=== PATIENT | male | born 1955 | race Caucasian/White ===

== ENCOUNTER → 2018-05-08 13:24 | Outpatient (CLI) | payer OTHER, SELFPAY ==
[2018-05-08 15:52] LABS: Absolute Lymphocyte Count 2.18 X10^3/ul (0.83-4.51); Absolute Neutrophil Count 4.2 X10^3/uL (2.0-7.7); Basophil# 0.03 X10^3/uL; Basophil% 0.4 % (0-1); Eosinophil# 0.09 X10^3/uL; Eosinophils% 1.3 % (0-5); Hematocrit 42.5 % (40-54); Hemoglobin 15.1 g/dl (13.0-16.5); Lymphocyte # 2.18 X10^3/ul (4.0); Mean Corp Hgb Conc 35.5 g/gl (32-36); Mean Corpuscular Hgb 31.3 pg (27.0-32.0); Mean Platelet Vol. 10.5 fl (6.2-12.0); Monocyte# 0.56 X10^3/uL; Neutrophil # 4.17 X10^3/uL (2.7-7.7); Neutrophil % 59.2 % (47-70); Platelet Count 200 K/mm3 (150-450); RBC Distribution Width CV 11.9 % (11.6-14.6); RBC Distribution Width SD 37.9 fl (35.1-43.9); Red Blood Count 4.83 M/mm3 (4.6-6.2)
[2018-05-08 15:58] LABS: POSITIVE COUNT NO; POSITIVE DIFFERENTIAL NO; POSITIVE MORPHOLOGY NO
[2018-05-08 16:20] LABS: ALB/GLOB Ratio 1.1 RATIO (0.9-2.4); AST(SGOT) 14 U/L (15-37); Alanine Aminotransfer ALT/SGPT 23 U/L (16-61); Alkaline Phosphatase 56 U/L (45-117); Anion Gap 11 (5-15); BUN 20 mg/dL (7-18); BUN/Creat Ratio 16.7 RATIO (10-20); Calcium,Total 8.4 mg/dL (8.5-10.1); Chloride 104 mmol/L (98-107); Cholesterol 190 mg/dL (200); EST Glomerular Filtration Rate 65 mL/min (>60); Est Glom Filt Rate - Afr Amer 79 mL/min (>60); Globulin 3.5 g/dL (2.2-4.2); Glucose 84 mg/dL (74-106); High Density Lipoprotein 49 mg/dL; PSA,Total - Annual Screen 1.21 ng/mL (0.00-4.00); Protein, Total 7.5 g/dL (6.4-8.2); Sodium Level 140 mmol/L (136-145); Thyroid Stim Hormone (TSH) 1.19 uIU/mL (0.358-3.74); Triglycerides 103 mg/dL; Very Low Density Lipoprotein 21 mg/dL (5-40)
[2018-05-09 08:26] LABS: Vitamin B12 510 pg/mL (211-911); Vitamin D,25 Hydroxy 52.7 ng/mL (29.95-100.01)
[2018-05-12 16:14] LABS: Testosterone, Free 13.17 ng/dL (5.00-21.00)
[2018-05-13 07:58] LABS: Testosterone, % Free 3.71 % (1.50-4.20); Testosterone, Total 355 ng/dL (264-916)
== END ==
PROVIDERS: Family Provider Family Medicine; PCP Family Medicine; Visit Provider Family Medicine
DX: Z00.01 Encounter for general adult medical examination with abnormal findings (principal); R53.83 Other fatigue; E29.1 Testicular hypofunction; E55.9 Vitamin D deficiency, unspecified; E53.8 Deficiency of other specified B group vitamins; E01.0 Iodine-deficiency related diffuse (endemic) goiter; Z12.5 Encounter for screening for malignant neoplasm of prostate
CPT/HCPCS: 36415; 80053; 80061; 82306; 82607; 84153; 84402; 84403; 84443; 85025; G0103

== ENCOUNTER → 2019-05-09 07:27 | Outpatient (CLI) | payer OTHER, SELFPAY ==
[2019-05-09 08:12] LABS: Absolute Lymphocyte Count 2.34 X10^3/uL (0.83-4.51); Basophil# 0.06 X10^3/uL; Eosinophil# 0.24 X10^3/uL; Eosinophils% 3.8 % (0-5); Hematocrit 45.5 % (40-54); Hemoglobin 15.8 g/dL (13.0-16.5); Lymphocyte # 2.34 X10^3/ul (4.0); Lymphocyte % 37.3 % (19-41); Mean Corp Hgb Conc 34.7 g/dL (32-36); Mean Corpuscular Hgb 30.9 pg (27.0-32.0); Mean Platelet Vol. 9.7 fl (6.2-12.0); Monocyte% 9.6 % (0-10); NRBC Flagged by Analyzer 0 % (0-5); Neutrophil # 3.03 X10^3/uL (2.7-7.7); Neutrophil % 48.1 % (47-70); Platelet Count 210 K/mm3 (150-450); RBC Distribution Width CV 11.6 % (11.6-14.6); RBC Distribution Width SD 37.5 fl (35.1-43.9); Red Blood Count 5.11 M/mm3 (4.6-6.2); White Blood Count 6.3 K/mm3 (4.4-11.0)
[2019-05-09 08:41] LABS: Vitamin B12 749 pg/mL (211-911); Vitamin D,25 Hydroxy 48.5 ng/mL (29.95-100.01)
[2019-05-09 08:44] LABS: ALB/GLOB Ratio 1.1 RATIO (0.9-2.4); AST(SGOT) 16 U/L (15-37); Alanine Aminotransfer ALT/SGPT 21 U/L (16-61); Albumin, Serum 4.1 g/dL (3.2-5.0); Alkaline Phosphatase 70 U/L (45-117); Anion Gap 5 (5-15); BUN 21 mg/dL (7-18); BUN/Creat Ratio 15.7 RATIO (10-20); Calcium,Total 8.5 mg/dL (8.5-10.1); Chloride 105 mmol/L (98-107); Cholesterol 182 mg/dL (200); Creatinine, Serum 1.34 mg/dL (0.70-1.30); EST Glomerular Filtration Rate 57 mL/min (>60); Est Glom Filt Rate - Afr Amer 69 mL/min (>60); Globulin 3.7 g/dL (2.2-4.2); Glucose 94 mg/dL (74-106); High Density Lipoprotein 52 mg/dL; PSA,Total - Annual Screen 1.28 ng/mL (0.00-4.00); Potassium 3.8 mmol/L (3.5-5.1); Protein, Total 7.8 g/dL (6.4-8.2); Sodium Level 141 mmol/L (136-145); Thyroid Stim Hormone (TSH) 1.77 uIU/mL (0.358-3.74); Triglycerides 89 mg/dL; Very Low Density Lipoprotein 18 mg/dL (5-40)
[2019-05-12 03:06] LABS: Testosterone, Free 7.43 ng/dL (5.00-21.00)
[2019-05-12 10:32] LABS: Testosterone, % Free 2.02 % (1.50-4.20); Testosterone, Total 368 ng/dL (264-916)
== END ==
PROVIDERS: Family Provider Family Medicine; PCP Family Medicine; Referring Provider Family Medicine; Visit Provider Family Medicine
DX: Z00.01 Encounter for general adult medical examination with abnormal findings (principal); R53.83 Other fatigue; E29.1 Testicular hypofunction; E55.9 Vitamin D deficiency, unspecified; E53.8 Deficiency of other specified B group vitamins; E01.0 Iodine-deficiency related diffuse (endemic) goiter; Z12.5 Encounter for screening for malignant neoplasm of prostate
CPT/HCPCS: 36415; 80053; 80061; 82306; 82607; 84153; 84402; 84403; 84443; 85025; G0103

== ENCOUNTER → 2020-05-15 09:13 | Outpatient (CLI) | payer OTHER, SELFPAY ==
[2020-05-15 12:14] LABS: Absolute Lymphocyte Count 1.77 X10^3/uL (0.83-4.51); Absolute Neutrophil Count 4.2 X10^3/uL (2.0-7.7); Basophil# 0.03 X10^3/uL; Basophil% 0.5 % (0-1); Eosinophil# 0.16 X10^3/uL; Eosinophils% 2.4 % (0-5); Hematocrit 41.2 % (40-54); Hemoglobin 14.1 g/dL (13.0-16.5); Lymphocyte # 1.77 X10^3/ul (4.0); Lymphocyte % 26.6 % (19-41); Mean Corp Hgb Conc 34.2 g/dL (32-36); Mean Corpuscular Hgb 31.2 pg (27.0-32.0); Mean Corpuscular Volume 91.2 fL (80-94); Monocyte# 0.51 X10^3/uL; Monocyte% 7.7 % (0-10); NRBC Flagged by Analyzer 0 % (0-5); Neutrophil # 4.18 X10^3/uL (2.7-7.7); Neutrophil % 62.6 % (47-70); Platelet Count 231 K/mm3 (150-450); RBC Distribution Width SD 39.7 fl (35.1-43.9); Red Blood Count 4.52 M/mm3 (4.6-6.2); White Blood Count 6.7 K/mm3 (4.4-11.0)
[2020-05-15 12:36] LABS: Vitamin B12 650 pg/mL (211-911); Vitamin D,25 Hydroxy 47.8 ng/mL
[2020-05-15 12:43] LABS: ALB/GLOB Ratio 1.1 RATIO (0.9-2.4); AST(SGOT) 10 U/L (15-37); Alanine Aminotransfer ALT/SGPT 21 U/L (16-61); Albumin, Serum 3.9 g/dL (3.2-5.0); Alkaline Phosphatase 61 U/L (45-117); Anion Gap 3 (5-15); BUN 26 mg/dL (7-18); BUN/Creat Ratio 19.4 RATIO (10-20); Calcium,Total 8.5 mg/dL (8.5-10.1); Chloride 108 mmol/L (98-107); Cholesterol 195 mg/dL (200); Creatinine, Serum 1.34 mg/dL (0.70-1.30); EST Glomerular Filtration Rate 57 mL/min (>60); Est Glom Filt Rate - Afr Amer 69 mL/min (>60); Globulin 3.7 g/dL (2.2-4.2); Glucose 97 mg/dL (74-106); High Density Lipoprotein 46 mg/dL; PSA,Total - Annual Screen 1.13 ng/mL (0.00-4.00); Potassium 4.1 mmol/L (3.5-5.1); Protein, Total 7.6 g/dL (6.4-8.2); Sodium Level 140 mmol/L (136-145); Thyroid Stim Hormone (TSH) 1.75 uIU/mL (0.358-3.74); Triglycerides 122 mg/dL; Very Low Density Lipoprotein 24 mg/dL (5-40)
[2020-05-19 12:07] LABS: Testosterone, Free 8.88 ng/dL (5.00-21.00)
[2020-05-19 13:26] LABS: Testosterone, Total 425 ng/dL (264-916)
[2020-05-19 13:27] LABS: Testosterone, % Free 2.09 % (1.50-4.20)
== END ==
PROVIDERS: PCP Family Medicine; Visit Provider Family Medicine
DX: Z00.00 Encounter for general adult medical examination without abnormal findings (principal); R42 Dizziness and giddiness; E55.9 Vitamin D deficiency, unspecified; E29.1 Testicular hypofunction; E53.8 Deficiency of other specified B group vitamins; R41.3 Other amnesia; Z12.5 Encounter for screening for malignant neoplasm of prostate
CPT/HCPCS: 36415; 80053; 80061; 82306; 82607; 84153; 84402; 84403; 84443; 85025; G0103

== ENCOUNTER 2020-12-03 10:11 | Outpatient (RCR) | payer OTHER, SELFPAY ==
[2020-12-03] MEDS: COVID-19 VACC, MRNA(PFIZER)/PF 30 MCG/0.3 ML SYRINGE IM (07:53)
[2020-12-24] MEDS: COVID-19 VACC, MRNA(PFIZER)/PF 30 MCG/0.3 ML SYRINGE IM (07:57)
== END 2021-03-02 23:59 ==
LOC: IMMUN 10:11
PROVIDERS: PCP Family Medicine; Visit Provider Family Medicine
DX: Z23 Encounter for immunization (principal)
CPT/HCPCS: 0001A; 0002A; 91300

== ENCOUNTER → 2022-07-07 | Outpatient (CLI) | payer MEDICARE, OTHER, SELFPAY | END | disposition home or self-care (01) | LOC: SL 20:05 | PROVIDERS: PCP Family Medicine; Referring Provider Family Medicine; Visit Provider Family Medicine | DX: G47.30 Sleep apnea, unspecified (principal) | CPT/HCPCS: 95810 ==

== ENCOUNTER → 2022-08-03 | Outpatient (CLI) | payer MEDICARE, OTHER, SELFPAY | END | disposition home or self-care (01) | LOC: PSN 11:51 | PROVIDERS: PCP Family Medicine; Referring Provider Family Medicine; Visit Provider Family Medicine | DX: I47.20 Ventricular tachycardia, unspecified (principal) | CPT/HCPCS: 93225; 93226 ==

== ENCOUNTER → 2022-08-08 | Outpatient (CLI) | payer MEDICARE, OTHER, SELFPAY | END | disposition home or self-care (01) | LOC: SL 21:00 | PROVIDERS: PCP Family Medicine; Visit Provider Family Medicine | DX: G47.33 Obstructive sleep apnea (adult) (pediatric) (principal) | CPT/HCPCS: 95811 ==

== ENCOUNTER → 2022-09-13 | Outpatient (CLI) | payer MEDICARE, OTHER, SELFPAY | END | disposition home or self-care (01) | PROVIDERS: PCP Family Medicine; Visit Provider Family Medicine | DX: G47.33 Obstructive sleep apnea (adult) (pediatric) (principal) | CPT/HCPCS: 95811 ==

== ENCOUNTER → 2023-05-19 | Outpatient (CLI) | payer MEDICARE, OTHER, SELFPAY ==
[2023-05-19 10:25] LABS: Absolute Lymphocyte Count 2.35 X10^3/uL (0.83-4.51); Absolute Neutrophil Count 4.5 X10^3/uL (2.0-7.7); Basophil# 0.05 X10^3/uL; Basophil% 0.7 % (0-1); Eosinophil# 0.09 X10^3/uL; Eosinophils% 1.2 % (0-5); Hematocrit 45.8 % (40-54); Hemoglobin 15.7 g/dL (13.0-16.5); Lymphocyte # 2.35 X10^3/ul (0.83-4.51); Mean Corp Hgb Conc 34.3 g/dL (32-36); Mean Corpuscular Volume 90.5 fL (80-94); Mean Platelet Vol. 9.2 fl (6.2-12.0); Monocyte# 0.56 X10^3/uL; Monocyte% 7.4 % (0-10); NRBC Flagged by Analyzer 0 % (0-5); Neutrophil % 59.4 % (47-70); Platelet Count 199 K/mm3 (150-450); RBC Distribution Width CV 12.1 % (11.6-14.6); Red Blood Count 5.06 M/mm3 (4.6-6.2); White Blood Count 7.6 K/mm3 (4.4-11.0)
[2023-05-19 10:55] LABS: Vitamin B12 659 pg/mL (211-911); Vitamin D,25 Hydroxy 49.8 ng/mL
[2023-05-19 10:58] LABS: ALB/GLOB Ratio 1.1 RATIO (0.9-2.4); AST(SGOT) 14 U/L (15-37); Alanine Aminotransfer ALT/SGPT 29 U/L (16-61); Alkaline Phosphatase 63 U/L (45-117); Anion Gap 6 (5-15); BUN 21 mg/dL (7-18); BUN/Creat Ratio 16.4 RATIO (10-20); Calcium,Total 8.6 mg/dL (8.5-10.1); Chloride 106 mmol/L (98-107); Cholesterol 180 mg/dL (200); Creatinine, Serum 1.28 mg/dL (0.70-1.30); EST Glomerular Filtration Rate 60 mL/min (>60); Est Glom Filt Rate - Afr Amer 72 mL/min (>60); Globulin 3.5 g/dL (2.2-4.2); Glucose 103 mg/dL (74-106); High Density Lipoprotein 49 mg/dL; PSA,Total - Annual Screen 1.52 ng/mL (0.00-4.00); Protein, Total 7.5 g/dL (6.4-8.2); Sodium Level 139 mmol/L (136-145); Thyroid Stim Hormone (TSH) 1.42 uIU/mL (0.358-3.74); Triglycerides 126 mg/dL; Very Low Density Lipoprotein 25 mg/dL (5-40)
== END | disposition home or self-care (01) ==
LOC: LAB 09:34
PROVIDERS: PCP Family Medicine; Referring Provider Family Medicine; Visit Provider Family Medicine
DX: R53.83 Other fatigue (principal); N18.31 Chronic kidney disease, stage 3a; E78.5 Hyperlipidemia, unspecified; Z12.5 Encounter for screening for malignant neoplasm of prostate; R41.3 Other amnesia; E55.9 Vitamin D deficiency, unspecified; E53.8 Deficiency of other specified B group vitamins
CPT/HCPCS: 36415; 80053; 80061; 82306; 82607; 84153; 84443; 85025; G0103

== ENCOUNTER → 2024-05-21 | Outpatient (CLI) | payer MEDICARE, OTHER, SELFPAY ==
[2024-05-21 13:00] LABS: Absolute Lymphocyte Count 2.31 X10^3/uL (0.83-4.51); Absolute Neutrophil Count 4.3 X10^3/uL (2.0-7.7); Basophil# 0.06 X10^3/uL; Basophil% 0.8 % (0-1); Eosinophils% 1.4 % (0-5); Hematocrit 42.1 % (40-54); Hemoglobin 14.2 g/dL (13.0-16.5); Lymphocyte # 2.31 X10^3/ul (0.83-4.51); Lymphocyte % 31.4 % (19-41); Mean Corp Hgb Conc 33.7 g/dL (32-36); Mean Corpuscular Hgb 31.2 pg (27.0-32.0); Mean Corpuscular Volume 92.5 fL (80-94); Mean Platelet Vol. 10.8 fl (6.2-12.0); Monocyte# 0.53 X10^3/uL; Monocyte% 7.2 % (0-10); NRBC Flagged by Analyzer 0 % (0-5); Neutrophil # 4.33 X10^3/uL (2.7-7.7); Neutrophil % 58.8 % (47-70); Platelet Count 209 K/mm3 (150-450); RBC Distribution Width SD 40.8 fl (35.1-43.9); Red Blood Count 4.55 M/mm3 (4.6-6.2); White Blood Count 7.4 K/mm3 (4.4-11.0)
[2024-05-21 14:13] LABS: ALB/GLOB Ratio 1.1 RATIO (0.9-2.4); AST(SGOT) 24 U/L (15-37); Alanine Aminotransfer ALT/SGPT 30 U/L (16-61); Albumin, Serum 4.1 g/dL (3.2-5.0); Alkaline Phosphatase 69 U/L (45-117); Anion Gap 9 (5-15); BUN 25 mg/dL (7-18); BUN/Creat Ratio 18.2 RATIO (10-20); Calcium,Total 9.3 mg/dL (8.5-10.1); Chloride 106 mmol/L (98-107); Cholesterol 192 mg/dL (200); Creatinine, Serum 1.37 mg/dL (0.70-1.30); EST Glomerular Filtration Rate 55 mL/min (>60); Est Glom Filt Rate - Afr Amer 67 mL/min (>60); Globulin 3.6 g/dL (2.2-4.2); Glucose 98 mg/dL (74-106); High Density Lipoprotein 50 mg/dL; PSA,Total - Annual Screen 1.59 ng/mL (0.00-4.00); Potassium 4.2 mmol/L (3.5-5.1); Protein, Total 7.7 g/dL (6.4-8.2); Sodium Level 140 mmol/L (136-145); Triglycerides 110 mg/dL; Very Low Density Lipoprotein 22 mg/dL (5-40)
== END | disposition home or self-care (01) ==
LOC: BFHLAB 10:03
PROVIDERS: PCP Family Medicine; Referring Provider Family Medicine; Visit Provider Family Medicine
DX: R53.83 Other fatigue (principal); E78.5 Hyperlipidemia, unspecified; Z12.5 Encounter for screening for malignant neoplasm of prostate
CPT/HCPCS: 36415; 80053; 80061; 84153; 85025; G0103

== ENCOUNTER → 2025-05-22 | Outpatient (CLI) | payer MEDICARE, OTHER, SELFPAY ==
--- OUTSIDE RECORDS SUMMARY | 2025-05-22 11:42 | XMS RPT_ITS | CCD ---
Author Organization [facility] Team Providers Care Manager Military Name Role Phone Vineet Eller Primary Care Provider Unavaila ble Vannesa Velasquez DO Primary Care Provider VANNESA VELASQUEZ Primary Care Unavailable MEIR FERRELL Referring Unavailable Vannesa Velasquez DO Primary Care Provider Vannesa Velasquez Referring Unavailable Vannesa Velasquez Attending Unavailable Vannesa Velasquez Primary Care Unavailable SELF Referring Unavailable MEIR FERRELL Attending Unavailable VANNESA VELASQUEZ Primary Care Unavailable Medications Current Medications Medication Drug Class(es) Dates Sig (Normalized) Sig (Original) ascorbic acid 500 mg oral tablet (11 sources) Vitamin C take 1 tablet by mouth once daily ascorbic acid, vitamin C, (VITAMIN C) 500 mg tablet Take 500 mg by mouth once daily. Active Comment on above: Take 500 mg by mouth once daily. ASHWAGANDHA EXTRACT ORAL (9 sources) take 600 mg by mouth once daily ASHWAGANDHA EXTRACT ORAL Take 600 mg by mouth once daily. Active take 600 mg by mouth once daily ASHWAGANDHA EXTRACT ORAL Take 600 mg by mouth once daily. 0 Active Comment on above: Take 600 mg by mouth once daily. ashwagandha root extract 500 mg cap (8 sources) Start: 08-29-2023 take 1 capsule by mouth once daily ashwagandha root extract 500 mg cap Take 500 mg by mouth once daily. 08/29/2023 Active Start: 08-29-2023 take 1 capsule by mo [facility] once daily ashwagandha root extract 500 mg cap Take 500 mg by mouth once daily. 0 08/29/2023 Active cholecalciferol 0.025 mg oral capsule (11 sources) Vitamin D Start: 05-27-2016 take 1 capsule by mouth once daily Cholecalciferol, Vitamin D3, 1,000 unit cap Take 1 capsule by mouth once daily. 0 05/27/2016 Active Comment on above: Take 1 capsule by mo [facility] once daily. CPAP (11 sources) Start: 01-15-2014 CPAP CPAP @ 9 cm of water with humidification. Mask (per patient preference) optional chin strap (if indicated) , filters, tubing, humidifier and lifetime supplies. Dx. PIETRO 327.23 1 Units 0 01/15/2014 Active Comment on above: CPAP @ 9 cm of water with humidification. Mask (per patient preference) optional chin strap (if indicated) , filters, tubing, humidifier and lifetime supplies. Dx. PIETRO 327.23 donepezil hydrochloride 10 mg oral tablet (13 sources) Start: 10-10-2023 End: 02-20-2025 take 1 tablet by mouth once daily after breakfast donepezil (ARICEPT) 10 mg tablet Take 1 tablet by mouth daily after breakfast. 90 tablet 1 02/21/2025 Active Start: 07-13-2023 take 1 tablet by gary once daily at mealtime donepezil (ARICEPT) 10 mg tablet Take 1 tablet by mouth daily with food. 30 tablet 2 07/13/2023 Active Start: 06-29-2023 take 1 tablet by gary th once daily at mealtime donepezil (ARICEPT) 5 mg tablet Take 1 tablet by mouth daily with food. 14 tablet 0 06/29/2023 Active Comment on above: Take 1 tablet by gary th daily with food. ELDERBERRY FRUIT (11 sources) elderberry fruit (ELDERBERRY ORAL) Take 1,000 mg by mouth. Active elderberry fruit (ELDERBERRY ORAL) Take by mouth. 0 Active Comment on above: Take by mouth. garlic preparation 1000 mg oral capsule (11 sources) Non-Standardized Food Allergenic Extract Garlic 1,000 mg cap Take 1,200 mg by mouth. Active Garlic 1,000 mg cap Take by mouth. 0 Active Comment on above: Take by mouth. melatonin 10 mg oral tablet (11 sources) melatonin 10 mg tab Take by mouth. Active Comment on above: Take by mouth. MULTIVITAMIN ORAL (11 sources) MULTIVITAMIN ORA L Take by mouth. Active MULTIVITAMIN ORA L Take by mouth. 0 Active Comment on above: Take by mouth. sertraline 100 mg oral tablet (10 sources) Serotonin Reuptake Inhibitor Start: 06-04-2024 take 1 tablet by mouth once daily sertraline (ZOLOFT) 100 mg tablet Indications: SULLY (generalized anxiety disorder) Take 1 tablet by mouth once daily. 90 tablet 3 06/04/2024 Active Start: 02-26-2024 End: 06-04-2024 take 1 tablet by mouth once daily, then take 0.5 tablet by mouth in the morning, then take 1 tablet by mouth once daily sertraline (ZOLOFT) 50 mg tablet Indications: SULLY (generalized anxiety disorder) Take 1 tablet by mouth once daily. TAKE 1/2 TABLET BY MOUTH IN THE MORNING FOR 1 WEEK, THEN TAKE 1 TABLET DAILY 30 tablet 3 02/26/2024 06/04/2024 Discontinued Start: 08-29-2023 End: 02-26-2024 take 0.5 tablet by mouth once daily in the morning, then take 1 tablet by mouth once daily sertraline (ZOLOFT) 50 mg tablet Indications: SULLY (generalized anxiety disorder) Half tablet a day by mouth in am for 1 week then 1 tablet a day 30 tablet 5 08/29/2023 02/26/2024 Discontinued vitamin b12 1 mg oral tablet (11 sources) Vitamin B12 take 1 tablet by mouth once daily cyanocobalamin (VITAMIN B-12) 1,000 mcg tab Take 1,000 mcg by mouth once daily. Active Comment on above: Take 1,000 mcg by mo [facility] once daily. Zinc (11 sources) ZINC ORAL Take 5 0 mg by mouth. Active ZINC ORAL Take 1 0 mg by mouth. 0 Active Comment on above: Take 10 mg by mouth. Completed/Discontinued Medications Medication Drug Class(es) Dates Sig (Normalized) Sig (Original) aspirin 81 mg delayed release oral tablet (1 source) Platelet Aggregation Inhibitor, Nonsteroidal Anti-inflammatory Drug Start: 05-27-2016 End: 05-24-2023 take 1 tablet by mouth once daily aspirin, enteric coated (ADULT LOW DOSE ASPIRIN) 81 mg EC tablet Take 1 tablet by mouth once daily. 0 05/27/2016 05/24/2023 Discontinued Comment on above: Take 1 tablet [facility]. benzonatate 100 mg oral capsule (1 source) Non-narcotic Antitussive Start: 08-02-2010 End: 02-10-2012 take 1 tablet by mouth three times daily as needed benzonatate (TESSALON PERLES) 100 mg ORAL capsule Take one(1) tablet three times a day as needed for coughing. 30 Cap 0 08/02/2010 02/10/2012 Discontinued Comment on above: Take one(1) tablet t hree times a day as needed for coughing. ciclopirox 80 mg/ml topical solution (1 source) Start: 03-17-2011 End: 02-10-2012 Ciclopirox (PENLAC) 8 % TOPICAL solution Apply 1 application to affected area once daily. 1 Bottle 5 03/17/2011 02/10/2012 Discontinued Comment on above: Apply 1 application to affected area once daily. COMPOUNDED PRESCRIPTION (1 source) Start: 07-26-2011 End: 02-10-2012 COMPOUNDED PRESCRIPTION Inhale as instructed daily at bedtime. CPAP setting increased to 9 cm H2O with heated humidification mask (per patient preference) and lifetime supplies DX PIETRO 327.23 1 Act 0 07/26/2011 02/10/2012 Discontinued Comment on above: Inhale as instructed daily at bedtime. CPAP setting increased to 9 cm H2O with heated humidification mask (per patient preference) and lifetime supplies DX PIETRO 327.23 fluticasone propionate 0.05 mg/actuat metered dose nasal spray (1 source) Corticosteroid Start: 05-18-2011 End: 08-17-2011 take 1 spray(s) nasal route twice daily fluticasone 50 mcg/Actuation NASAL nasal spray Indications: PIETRO (obstructive sleep apnea) , Nasal septal deviation Use 1 Mcgrath in each nostril twice daily. 1 Bottle 0 05/18/2011 08/17/2011 Discontinued Comment on above: Use 1 Mcgrath in each nostril twice daily. multivitamin ORAL tablet (1 source) Start: 05-18-2011 End: 02-10-2012 take 1 tablet by mouth once daily multivitamin ORAL tablet Take 1 tablet by mouth once daily. 0 05/18/2011 02/10/2012 Discontinued Comment on above: Take 1 tablet by gary th once daily. 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; Translations: [Dementia with Lewy bodies] 05-24-2023 Chronic Malaise and fatigue (1 source) Other fatigue; Translations: [Other fatigue] Onset: 05-25-2024 Episodic Mood disorders (12 sources) Depressive disorder; Translations: [Major depressive disorder, single episode, unspecified] Onset: 03-02-2007 03-16-2009 Chronic Other hereditary and degenerative nervous system conditions (1 source) Impaired cognition; Translations: [Mild cognitive impairment, so stated] 06-29-2023 Chronic Other hereditary and degenerative nervous system conditions (1 source) Mild cognitive impairment, so stated; Translations: [Cognitive impairment, mild, so stated] Onset: 08-01-2023 Chronic Residual codes; unclassified (13 sources) Obstructive sleep apnea syndrome; Translations: [Obstructive sleep apnea (adult) (pediatric)] Onset: 07-07-2010 Chronic Unclassified (12 sources) Hypogonadism; Translations: [Hypogonadism] Onset: 08-02-2010 08-02-2010 Past or Other Problems Problem Classification Problem Date Documented Da te Episodic/Chronic Other connective tissue disease (8 sources) Tenosynovitis; Translations: [Other synovitis and tenosynovitis, unspecified hand] Onset: 03-06-2006 Resolved: 05-27-2016 05-27-2016 Episodic Other male genital disorders (12 sources) Adult hydrocele; Translations: [Hydrocele, unspecified] Onset: 04-22-2016 04-22-2016 Episodic Other upper respiratory disease (12 sources) Deviated nasal septum; Translations: [Deviated nasal septum] Onset: 05-18-2011 05-18-2011 Episodic Residual codes; unclassified (12 sources) Insomnia; Translations: [Insomnia, unspecified] Onset: 07-07-2010 07-07-2010 Episodic Spondylosis; intervertebral disc disorders; other back problems (12 sources) Low back pain; Translations: [Low back pain] Onset: 03-09-2009 03-09-2009 Episodic Results Test Name Value Interpretation Reference Range Facility [facility] 08-27-2024 [facility] Tele[facility] (NB[facility]) NINOTEAGAN ([id number]) 1955 M Date Time Provider Department 08/27/24 ELISSA HUDSON During your visit today, we recorded the following information about you: Elissa Hudson, Research Coordinator 08/27/2024 12:13 PM Signed Called patient to discuss potential enrollment in [facility]. Left VM and callback number. Elissa Hudson Research Coordinator 09/05/2024 4:05 PM Addendum Called again 09/05. Left VM and callback number. Patient called back a few minutes later. Told him about the [facility], emailing [facility] for review. Allergies As of Date: 08/27/2024 (No Known Allergies) Date Reviewed: 06/04/2024 Reviewed by: Eulogio Barbosa MA - Fully Assessed Reason for Visit: Research [[id number]] Cmt: [facility] IRB [id number] Prescriptions as of 09/05/2024 - sertraline (ZOLOFT) 100 mg tablet Take 1 tablet by mouth once daily. - donepezil (ARICEPT) 10 mg tablet Take 1 tablet by mouth daily with food. - ashwagandha root extract 500 mg cap Take 500 mg by mouth once daily. - ASHWAGANDHA EXTRACT ORAL Take 600 mg by mouth once daily. - MULTIVITAMIN ORAL Take by mouth. - cyanocobalamin (VITAMIN B-12) 1,000 mcg tab Take 1,000 mcg by mouth once daily. - Garlic 1,000 mg cap Take 1,200 mg by mouth. - ascorbic acid, vitamin C, (VITAMIN C) 500 mg tablet Take 500 mg by mouth once daily. - ZINC ORAL Take 50 mg by mouth. - elderberry fruit (ELDERBERRY ORAL) Take 1,000 mg by mouth. - melatonin 10 mg tab Take by mouth. - Cholecalciferol, Vitamin D3, 1,000 unit cap Take 1 capsule by mouth once daily. - CPAP CPAP @ 9 cm of water with humidification. Mask (per patient preference) optional chin strap (if indicated) , filters, tubing, humidifier and lifetime supplies. Dx. PIETRO 327.23 Problem List As Of Date 08/27/2024 Noted Resolved Other tenosynovitis of hand and wrist [M65.849,*03/06/2006 05/27/2016 DEPRESSIVE DISORDER NEC [F32.89] 03/02/2007 LUMBAGO [M54.50] 03/09/2009 Insomnia [G47.00] 07/07/2010 PIETRO (obstructive sleep apnea) [G47.33] 07/07/2010 Hypogonadism 08/02/2010 Nasal septal deviation [J34.2] 05/18/2011 Hydrocele in adult [N43.3] 04/22/2016 Encounter Status:Closed by ELISSA HUDSON on 08/27/24 Normal [facility] CNOVon 06-04-2024 CNOV Office Visit ([facility] ) TEAGAN ONEILL ([id number]) 1955 M Date Time Provider Department 06/04/24 1:00 PM MEIR FERRELL During your visit today, we recorded the following information about you: Pulse Blood pressure Weight 65/minute 150/77 92.1 kg Eulogio Barbosa MA 06/04/2024 12:47 PM Signed Teagan Chavez Nino is a 69 year old year old man accompanied by: spouse. Do you have any changes or new concerns you would like to address at the visit today? Patient offers no new changes or concerns. 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 He is here today for follow up. Previous evaluation noted: This is a 68 y/o male with MCI (Prodromal Lewy Body disease). We are glad you tolerated donepezil well and saw positive results. We recommended an anti-depressant called Sertraline (Zoloft). I am prescribing Sertraline 25 mg (half tablet of 50 mg) daily after breakfast. After one week, please take one tablet of 50 mg daily. It may take 2-3 weeks to achieve desired results. Take in the morning to reduce the incidence of insomnia. Avoid alcohol. Maintain adequate hydration unless instructed to restrict fluid intake. You may experience drowsiness, dizziness, lightheadedness, nausea, vomiting, anorexia, dry mouth, postural hypotension, urinary pattern changes, or male sexual dysfunction (reversible). Report persistent insomnia or daytime sedation, agitation, nervousness, fatigue; muscle cramping, tremors, or weakness; chest pain, palpitations, or swelling of extremities; vision changes; ringing in ears; skin rash or irritation; suicide ideation; or worsening of condition. Since the last visit, they report improvement in symptoms: The spouse noted he is back to old habits, using computer, alert, and great improvement in cognition. Once or twice a month he may space out. Exercises regularly 30 minx 5 days. He takes melatonin 10 mg at bedtime. Still may act his dreams, may not as frequent as before. Wakes up at 9 which is different than his past. Dementia Severity Rating Scale (DSRS) 06/04/2024 DSRS Person completing Radha Live with participant? Yes Contact with participant 5 or more days per week Relationship to participant Spouse Memory 1 Speech and Language 0 Recognition of Family Members 0 Orientation to Time [address] 1 Ability to Make Decisions 0 Social and Community Activity 0 Home Activities and Responsibilities 1 Personal Care - Cleanliness 0 Eating 0 Urination and Bowels 0 Ability to Get From Place to Place 0 DSRS TOTAL SCORE 3 DSRS Interpretation Mild (0-18) Other interval history: Falls: negative Mood: normal Sleep: PIETRO and uses CPAP Hallucinations: None well formed, sometimes see dark flashes moving cross the room. No incontinence. 5-6: Activities of Daily Living, Driving PAST MEDICAL HISTORY No date: Depression No date: Dysfunction of eustachian tube No date: Enthesopathy of wrist and carpus No date: Insomnia, unspecified No date: Obstructive sleep apnea No date: Other dyspnea and respiratory abnormality No date: Stricture and stenosis of esophagus SOCIAL HISTORY Social History Tobacco Use Smoking status: Never Substance Use Topics Alcohol use: No Drug use: No Social History reviewed by Meir Ferrell MD Cognitive Exam: 06/29/2023 06/04/2024 [facility] MOCA TOTAL SCORE 22 26 out of 30 30 Vital Signs: BP 150/77 (BP Site: Left Arm, BP Position: Sitting, BP Cuff Size: Regular Adult) Pulse 65 Wt 92.1 kg (203 lb 0.7 oz) BMI 27.54 kg/m? Neurological Exam Cranial Nerves Hypomimia Motor Examination and Coordination MDS-UPDRS Medication off/on: Drug naiive DBS - Right: N/A DBS - Left: N/A Speech: Slight Facial expression: Slight Rigidity - neck: Normal Rigidity - right UE: Slight left UE: Slight Rigidity - right LE: Slight left LE: Normal Finger tapping - right: Slight left: Normal Hand movements - right: Normal left: Normal Pronation-supination movements of hands - right: Normal left: Normal Toe tapping - right: Normal left: Normal Leg agility - right: Normal left: Normal Arises from chair: Normal Gait: Normal Gait freeze: Normal Posture stability: Normal Posture: Normal Body bradykinesia: Normal Postural tremor of the hands - right: Normal left: Normal Kinetic tremor of the hands - right: Slight left: Slight Rest tremor amplitude - right UE: Normal left UE: Normal Rest tremor amplitude - right LE: Normal left LE: Normal Rest tremor amplitude - lip/jaw: Normal Constancy of rest tremor: Normal MDS-UPDRS Total Scores Right-flaca (more content not included)... Normal [facility] CBC W/Diff, Automatedon 08-2 Absolute Lymph 2.31 X10 3/uL Normal 0.83-4.51 [facility] Comment on above: Performed By: #### L 501.9910, L100.0100, L500.4100, L500.4050 #### [facility] [address] [place], [place], [id number] Absolute Neut 4.3 X10 3/uL Normal 2.0-7.7 [facility] Comment on above: Performed By: #### L 501.9910, L100.0100, L500.4100, L500.4050 #### [facility] [address] [place], [address] Basophils/100 WBC (Bld) 0.8 % Normal 0-1 [facility] Comment on above: Performed By: #### L 501.9910, L100.0100, L500.4100, L500.4050 #### [facility] [address] [place], [address] Eosinophils/100 WBC (Bld) 1.4 % Normal 0-5 [facility] Comment on above: Performed By: #### L 501.9910, L100.0100, L500.4100, L500.4050 #### [facility] [address] [place], [address] Erythrocyte distribution width (RBC) [Ratio] 12.0 % Normal 11.6-14.6 [facility] Comment on above: Performed By: #### L 501.9910, L100.0100, L500.4100, L500.4050 #### [facility] [address] [place], [address] Hematocrit (Bld) [Volume fraction] 42.1 % Normal 40-54 [facility] Comment on above: Performed By: #### L 501.9910, L100.0100, L500.4100, L500.4050 #### [facility] [address] [place], [address] Hemoglobin (Bld) [Mass/Vol] 14.2 g/dL Normal 13.0-16.5 [facility] Comment on above: Performed By: #### L 501.9910, L100.0100, L500.4100, L500.4050 #### [facility] [address] [place], [address] IG% 0.400 Normal 0.0-0.9 [facility] Comment on above: Result Comment: IG% - Immature Granulocytes (promyelocytes, myelocytes and metamyelocytes) > 1% indicates that a LEFT SHIFT is Present. Performed By: #### L 501.9910, L100.0100, L500.4100, L500.4050 #### [facility] [address] [place], [address] Lymphocytes/100 WBC (Bld) 31.4 % Normal 19-41 [facility] Comment on above: Performed By: #### L 501.9910, L100.0100, L500.4100, L500.4050 #### [facility] [address] [place], [address] MCH (RBC) [Entitic mass] 31.2 pg Normal 27.0-32.0 [facility] Comment on above: Performed By: #### L 501.9910, L100.0100, L500.4100, L500.4050 #### [facility] [address] [place], [address] MCHC (RBC) [Mass/Vol] 33.7 g/dL Normal 32-36 [facility] Comment on above: Performed By: #### L 501.9910, L100.0100, L500.4100, L500.4050 #### [facility] [address] [place], [address] MCV (RBC) [Entitic vol] 92.5 fL Normal 80-94 [facility] Comment on above: Performed By: #### L 501.9910, L100.0100, L500.4100, L500.4050 #### [facility] [address] [place], [address] Monocytes/100 WBC (Bld) 7.2 % Normal 0-10 [facility] Comment on above: Performed By: #### L 501.9910, L100.0100, L500.4100, L500.4050 #### [facility] [address] [place], [address] Neutrophils/100 WBC (Bld) 58.8 % Normal 47-70 [facility] Comment on above: Performed By: #### L 501.9910, L100.0100, L500.4100, L500.4050 #### [facility] [address] [place], [address] Nucleated RBC (Bld) [#/Vol] 0 10*3/uL Normal 0-5 [facility] Comment on above: Performed By: #### L 501.9910, L100.0100, L500.4100, L500.4050 #### [facility] [address] [place], [address] Platelet mean volume (Bld) [Entitic vol] 10.8 fL Normal 6.2-12.0 [facility] Comment on above: Performed By: #### L 501.9910, L100.0100, L500.4100, L500.4050 #### [facility] [address] [place], [address] Platelets (Bld) [#/Vol] 209 10*3/uL Normal 150-450 [facility] Comment on above: Performed By: #### L 501.9910, L100.0100, L500.4100, L500.4050 #### [facility] [address] [place], [address] RBC (Bld) [#/Vol] 4.55 10*6/uL Low 4.6-6.2 [facility] Comment on above: Performed By: #### L 501.9910, L100.0100, L500.4100, L500.4050 #### [facility] [address] [place], [address] RDW SD 40.8 fl Normal 35.1-43.9 [facility] Comment on above: Performed By: #### L 501.9910, L100.0100, L500.4100, L500.4050 #### [facility] [address] [place], [address] WBC (Bld) [#/Vol] 7.4 10*3/uL Normal 4.4-11.0 [facility] Comment on above: Performed By: #### L 501.9910, L100.0100, L500.4100, L500.4050 #### [facility] [address] [place], [address] Comprehensive Metabolic Prof [facility] 05-21-2024 Albumin [Mass/Vol] 4.1 g/dL Normal 3.2-5.0 [facility] Comment on above: Performed By: #### L 501.9910, L100.0100, L500.4100, L500.4050 #### [facility] [address] [place], [address] Albumin/Globulin [Mass ratio] 1.1 {ratio} Normal 0.9-2.4 [facility] Comment on above: Performed By: #### L 501.9910, L100.0100, L500.4100, L500.4050 #### [facility] [address] [place], [address] ALK P 69 U/L Normal 45-117 [facility] Comment on above: Performed By: #### L 501.9910, L100.0100, L500.4100, L500.4050 #### [facility] [address] [place], [address] ALT [Catalytic activity/Vol] 30 U/L Normal 16-61 [facility] Comment on above: Performed By: #### L 501.9910, L100.0100, L500.4100, L500.4050 #### [facility] [address] [place], [address] AST [Catalytic activity/Vol] 24 U/L Normal 15-37 [facility] Comment on above: Result Comment: Slig ht Hemolysis, Result may be falsely increased. Performed By: #### L 501.9910, L100.0100, L500.4100, L500.4050 #### [facility] [address] [place], [address] Bilirubin [Mass/Vol] 0.80 mg/dL Normal 0.20-1.00 [facility] Comment on above: Result Comment: For patients on eltrombopag therapy, use of Dimension [place] TBIL is not recommended. Performed By: #### L 501.9910, L100.0100, L500.4100, L500.4050 #### [facility] [address] [place], [address] BUN/CRE 18.2 RATIO Normal 10-20 [facility] Comment on above: Performed By: #### L 501.9910, L100.0100, L500.4100, L500.4050 #### [facility] [address] [place], [address] CA,Total 9.3 mg/dL Normal 8.5-10.1 [facility] Comment on above: Performed By: #### L 501.9910, L100.0100, L500.4100, L500.4050 #### [facility] [address] [place], [address] Chloride [Moles/Vol] 106 mmol/L Normal 98-107 [facility] Comment on above: Performed By: #### L 501.9910, L100.0100, L500.4100, L500.4050 #### [facility] [address] [place], [address] CO2 [Moles/Vol] 25.0 mmol/L Normal 21.0-32.0 [facility] Comment on above: Performed By: #### L 501.9910, L100.0100, L500.4100, L500.4050 #### [facility] [facility] [address] [place], [address] Creatinine [Mass/Vol] 1.37 mg/dL High 0.70-1.30 [facility] Comment on above: Result Comment: The validity of the calculated GFR GFRAA in patients over 70 years has not been determined. Clinical correlation is essential. Performed By: #### L 501.9910, L100.0100, L500.4100, L500.4050 #### [facility] [address] [place], [address] EST GFR - AA 67 mL/min Normal >60 [facility] Comment on above: Result Comment: Afri can Marshallese GFR Calc Performed By: #### L 501.9910, L100.0100, L500.4100, L500.4050 #### [facility] [address] [place], [address] GAP 9 Normal 5-15 [facility] Comment on above: Performed By: #### L 501.9910, L100.0100, L500.4100, L500.4050 #### [facility] [address] [place], [address] GFR/1.73 sq M.predicted among non-blacks MDRD (S/P/Bld) [Vol rate/Area] 55 mL/min/{1.73_m2} Low >60 [facility] Comment on above: Result Comment: Non- GFR Calc Performed By: #### L 501.9910, L100.0100, L500.4100, L500.4050 #### [facility] [address] [place], [address] Globulin (S) [Mass/Vol] 3.6 g/dL Normal 2.2-4.2 [facility] Comment on above: Performed By: #### L 501.9910, L100.0100, L500.4100, L500.4050 #### [facility] [address] [place], [address] Glucose [Mass/Vol] 98 mg/dL Normal 74-106 [facility] Comment on above: Performed By: #### L 501.9910, L100.0100, L500.4100, L500.4050 #### [facility] [address] [place], [address] Potassium [Moles/Vol] 4.2 mmol/L Normal 3.5-5.1 [facility] Comment on above: Result Comment: Slig ht Hemolysis, Result may be falsely increased. Performed By: #### L 501.9910, L100.0100, L500.4100, L500.4050 #### [facility] [address] [place], [address] Sodium [Moles/Vol] 140 mmol/L Normal 136-145 [facility] Comment on above: Performed By: #### L 501.9910, L100.0100, L500.4100, L500.4050 #### [facility] [address] [place], [address] T PROT 7.7 g/dL Normal 6.4-8.2 [facility] Comment on above: Performed By: #### L 501.9910, L100.0100, L500.4100, L500.4050 #### [facility] [address] [place], [address] Urea nitrogen [Mass/Vol] 25 mg/dL High 7-18 [facility] Comment on above: Performed By: #### L 501.9910, L100.0100, L500.4100, L500.4050 #### [facility] [address] [place], [address] Lipid Profileon 05-21-2024 Cholesterol [Mass/Vol] 192 mg/dL Normal 200 [facility] Comment on above: Result Comment: <200 mg/dL Desirable 200-240 mg/dL Borderline >240 mg/dL High Risk Performed By: #### L 501.9910, L100.0100, L500.4100, L500.4050 #### [facility] [address] [place], [address] Cholesterol in HDL [Mass/Vol] 50 mg/dL Normal [facility] Comment on above: Result Comment: The drugs N-Acetylcysteine and Metamizole may falsely depress this assay. Reference Range HDL <40 mg/dL Low HDL Cholesterol HDL >or= 60 mg/dL High HDL Cholesterol Performed By: #### L 501.9910, L100.0100, L500.4100, L500.4050 #### [facility] [address] [place], [address] Cholesterol in LDL [Mass/Vol] 120 mg/dL Normal 0-130 [facility] Comment on above: Performed By: #### L 501.9910, L100.0100, L500.4100, L500.4050 #### [facility] [address] [place], [address] Cholesterol in VLDL [Mass/Vol] 22 mg/dL Normal 5-40 [facility] Comment on above: Performed By: #### L 501.9910, L100.0100, L500.4100, L500.4050 #### [facility] [address] [place], [address] Triglyceride [Mass/Vol] 110 mg/dL Normal [facility] Comment on above: Result Comment: The drugs N-Acetylcysteine and Metamizole may falsely depress this assay. Serum Triglycerides Reference Interval Normal <150 mg/dL Borderline high 150 - 199 mg/dL High 200 - 499 mg/dL Very High > or = 500 mg/dL Performed By: #### L 501.9910, L100.0100, L500.4100, L500.4050 #### [facility] [address] [place], [address] PSA,Total - Annual Screenon 05-21-2024 PSA,TOT SCREEN 1.59 ng/mL Normal 0.00-4.00 [facility] Comment on above: Result Comment: This test was performed using the TPSA assay method for the [employer] chemistry system. Values obtained with different assay methods cannot be used interchangably. When changing PSA assays in the course of monitoring a patient, additional sequential testing should be carried out to confirm baseline values. Performed By: #### L 501.9910, L100.0100, L500.4100, L500.4050 #### [facility] [address] [place], [address] [facility] 02-27-2024 [facility] ([facility]) TEAGAN ONEILL ([id number]) 1955 Date Time Provider Department 02/27/24 TOMEIR GOTTI [facility] During your visit today, we recorded the following information about you: Valeria Paredes RN 02/27/2024 2:46 PM Signed Pt left stating that he is having a hard time getting his script filled for Sertraline 50mg at [facility]. This nurse called [facility] and they verified that script is ready for pick-up. I called patient back and left stating this and also left call back number in the event that there are more questions. Valeria Paredes RN Allergies As of Date: 02/27/2024 (No Known Allergies) Date Reviewed: 06/29/2023 Reviewed by: Eulogio Barbosa MA - Fully Assessed Reason for Visit: Patient Question [[id number]] Prescriptions as of 02/27/2024 - sertraline (ZOLOFT) 50 mg tablet Take 1 tablet by mouth once daily. TAKE 1/2 TABLET BY MOUTH IN THE MORNING FOR 1 WEEK, THEN TAKE 1 TABLET DAILY - donepezil (ARICEPT) 10 mg tablet Take 1 tablet by mouth daily with food. - ashwagandha root extract 500 mg cap Take 500 mg by mouth once daily. - ASHWAGANDHA EXTRACT ORAL Take 600 mg by mouth once daily. - MULTIVITAMIN ORAL Take by mouth. - cyanocobalamin (VITAMIN B-12) 1,000 mcg tab Take 1,000 mcg by mouth once daily. - Garlic 1,000 mg cap Take by mouth. - ascorbic acid, vitamin C, (VITAMIN C) 500 mg tablet Take 500 mg by mouth once daily. - ZINC ORAL Take 10 mg by mouth. - elderberry fruit (ELDERBERRY ORAL) Take by mouth. - melatonin 10 mg tab Take by mouth. - Cholecalciferol, Vitamin D3, 1,000 unit cap Take 1 capsule by mouth once daily. - CPAP CPAP @ 9 cm of water with humidification. Mask (per patient preference) optional chin strap (if indicated) , filters, tubing, humidifier and lifetime supplies. Dx. PIETRO 327.23 Problem List As Of Date 02/27/2024 Noted Resolved Other tenosynovitis of hand and wrist [M65.849,*03/06/2006 05/27/2016 DEPRESSIVE DISORDER NEC [F32.89] 03/02/2007 LUMBAGO [M54.50] 03/09/2009 Insomnia [G47.00] 07/07/2010 PIETRO (obstructive sleep apnea) [G47.33] 07/07/2010 Hypogonadism 08/02/2010 Nasal septal deviation [J34.2] 05/18/2011 Hydrocele in adult [N43.3] 04/22/2016 Encounter Status:Closed by VALERIA PAREDES on 02/27/24 [facility] 08-01-2023 [facility] HNO ID: [id number] Author: Chey Mazariegos, ironer hand Service: Radiology Author Type: [employer] Intern Type: Allied Health Filed: 08/01/2023 4:18 PM Note Text: Radiology Service Progress Note PATIENT NAME: Teagan Oneill DATE OF SERVICE: August 01, 2023 TIME: 4:18 PM PATIENT IDENTITY VERIFICATION COMPLETED USING TWO (2) IDENTIFIERS: Name and Date of confirmed by patient verbally and Name and Date of confirmed by identification band. FALL SCREENING: Has the patient had 2 falls in the last year or 1 fall with injury or currently using an Ambulatory Assistive Device (Walker, Cane, Wheelchair, Crutches, etc.)? No PATIENT GENDER DATA: Male PATIENT RELEVANT IMPLANT DATA REVIEWED: Yes RADIOLOGY DEPARTMENT: MR; Exam(s) Completed: Head: Routine Brain PERIPHERAL IV DATA: Not applicable SIGNED BY: Chey Mazariegos, ironer hand Blessed Cortez RT(R) August 01, 2023 4:18 PM [facility] MRI 3D POST PROCESSINGon MRI 3D POST PROCESSING * * *Final Report * * * DATE OF EXAM: Aug 01 2023 3:02PM [facility] 0280 - MRI 3D POST PROCESSING / PROCEDURE REASON: Cognitive impairment, mild, so stated * * * * Physician Interpretation * * * * EXAMINATION: MRI BRAIN W QUANT WO IVCON, MRI 3D POST PROCESSING CLINICAL HISTORY: Cognitive impairment, mild, so stated TECHNIQUE: Axial STEVE FLAIR, STEVE T2, diffusion and susceptibility weighted imaging without contrast, using the ADNI dementia protocol and 3-D post-processing using the [employer] software at an independent workstation with concurrent physician supervision and images were created, reviewed and archived. MQ: [id number] COMPARISON: None RESULT: QUALITATIVE: Acute Intracranial Process: None. Chronic Intracranial Process: None. Age related white matter changes ([facility]) rating: White matter lesions: 0 Basal ganglia lesions: 0 Prior intracranial hemorrhage: Parenchymal microhemorrhages: 0 Other (siderosis/macrohemor rhages (>10mm): Not Applicable Amyloid Related Imaging Abnormalities: ARIA-E: N/A ARIA-H Microhemorrhage: N/A ARIA-H Siderosis: N/A Qualitative brain and hippocampal volume loss for age: Cortex: Normal White Matter: Mild Hippocampi: Normal Ventricles: Commensurate with volume loss. Septum pellucidum is discontinuous. Brain Parenchymal Signal and Morphology: The brain parenchyma is otherwise within normal limits of signal and morphology. There is no evidence of an intracranial mass or extraaxial fluid collection. Other Significant Findings: None. QUANTITATIVE: Exam Quality: Good for volumetric analysis. Segmentation: Accurate segmentation by visual inspection Quantitative Data: Total Hippocampal Volume: Percentile for Age: 58 Asymmetry Index: -6.41 Inferior Lateral Vent Volume: Percentile for age: 7 Asymmetry Index: 0.15 Superior Lateral Vent Volume: Percentile for age: 73 Asymmetry Index: -0.18 Temporal Lobe Volume: Temporal Lobe Percentile for Age: 17 Temporal Lobe Asymmetry Index: -1.84 Frontal Lobe Volume: Frontal Lobe Percentile for Age: 40 Frontal Lobe Asymmetry Index: -3.37 Parietal Lobe Volume: Parietal Lobe Percentile for Age:8 Occipital Lobe Volume: Occipital Lobe Percentile for Age: 69 Whole Brain Volume Brain Percentile for Age: 29 Concordance between qualitative and quantitative hippocampal volume assessment: Concordant Change in brain volumes: No previous volumetric study for comparison Brain Volume Change: N/A Hippocampal Volume Change: N/A Superior Lateral Ventricle Volume Change: N/A Inferior Lateral Ventricle Volume Change: N/A Mean hippocampal volume loss among normal elderly: 0.7% per year, (-0.3 to 1.7; Joshua 2008; also Jw 2010). IMPRESSION: * No evidence of an acute intracranial process or intracranial mass. * Mild central predominant volume loss. * Hippocampal volumes at the 58th percentile when compared to age matched normal controls by quantitative analysis. * Minimal white matter disease which is nonspecific but likely reflective of chronic microvascular ischemia. * No evidence of parenchymal microhemorrhages by MRI. REFERENCES: White Matter Lesions: 0 = No lesions, including symmetrical, well-defined caps or bands 1 = Focal Lesions 2 = Beginning of [place] 3 = Diffuse Involvement of Entire Region Basal Ganglia Lesions: 0 = No Lesions 1 = 1 Focal Lesion (>5mm) 2 = >1 Focal Lesion (>5mm) 3 = Confluent Lesions Jw Morales, et al. The clinical use of structural MRI in Alzheimer disease. Nature Reviews Neurology 6;67 (2010). Joshua et al. Validation of a fully automated 3D hippocampal segmentation method using subjects with Alzheimer's disease mild cognitive impairment, and elderly controls. Neuroimage 43;59 (2008). Wahlund et al. A New Rating Scale for Age-Related White Matter Changes Applicable to MRI and CT. Stroke. 32:1318 (2001). * Asymmetry index defined as difference between left and right volumes divided by mean or [(L-R/Mean) x 100] (%). Age-matched reference charts measure total hippocampal volume (% of intracranial volume). See results from the analysis charts for details. Critical Care Paramedic: RAMONITA Transcribe Date/Time: Aug 01 2023 6:07P Dictated by : SHWETHA STEINER MD This examination was interpreted and the report reviewed and electronically signed by: SHWETHA STEINER MD on Aug 01 2023 6:12PM EST [id number] N [facility] MRI BRAIN W QUANT WO IVCONon 08-01-2023 MRI BRAIN W QUANT WO IVCON * * *Final Report* * * DATE OF EXAM: Aug 01 2023 3:02PM [facility] 3015 - MRI BRAIN W QUANT WO IVCON / PROCEDURE REASON: Cognitive impairment, mild, so stated * * * * Physician Interpretation * * * * EXAMINATION: MRI BRAIN W QUANT WO IVCON, MRI 3D POST PROCESSING CLINICAL HISTORY: Cognitive impairment, mild, so stated TECHNIQUE: Axial STEVE FLAIR, STEVE T2, diffusion and susceptibility weighted imaging without contrast, using the ADNI dementia protocol and 3-D post-processing using the [employer] software at an independent workstation with concurrent physician supervision and images were created, reviewed and archived. MQ: [id number] COMPARISON: None RESULT: QUALITATIVE: Acute Intracranial Process: None. Chronic Intracranial Process: None. Age related white matter changes ([facility]) rating: White matter lesions: 0 Basal ganglia lesions: 0 Prior intracranial hemorrhage: Parenchymal microhemorrhages: 0 Other (siderosis/macrohemor rhages (>10mm): Not Applicable Amyloid Related Imaging Abnormalities: ARIA-E: N/A ARIA-H Microhemorrhage: N/A ARIA-H Siderosis: N/A Qualitative brain and hippocampal volume loss for age: Cortex: Normal White Matter: Mild Hippocampi: Normal Ventricles: Commensurate with volume loss. Septum pellucidum is discontinuous. Brain Parenchymal Signal and Morphology: The brain parenchyma is otherwise within normal limits of signal and morphology. There is no evidence of an intracranial mass or extraaxial fluid collection. Other Significant Findings: None. QUANTITATIVE: Exam Quality: Good for volumetric analysis. Segmentation: Accurate segmentation by visual inspection Quantitative Data: Total Hippocampal Volume: Percentile for Age: 58 Asymmetry Index: -6.41 Inferior Lateral Vent Volume: Percentile for age: 7 Asymmetry Index: 0.15 Superior Lateral Vent Volume: Percentile for age: 73 Asymmetry Index: -0.18 Temporal Lobe Volume: Temporal Lobe Percentile for Age: 17 Temporal Lobe Asymmetry Index: -1.84 Frontal Lobe Volume: Frontal Lobe Percentile for Age: 40 Frontal Lobe Asymmetry Index: -3.37 Parietal Lobe Volume: Parietal Lobe Percentile for Age:8 Occipital Lobe Volume: Occipital Lobe Percentile for Age: 69 Whole Brain Volume Brain Percentile for Age: 29 Concordance between qualitative and quantitative hippocampal volume assessment: Concordant Change in brain volumes: No previous volumetric study for comparison Brain Volume Change: N/A Hippocampal Volume Change: N/A Superior Lateral Ventricle Volume Change: N/A Inferior Lateral Ventricle Volume Change: N/A Mean hippocampal volume loss among normal elderly: 0.7% per year, (-0.3 to 1.7; Joshua 2008; also Jw 2010). IMPRESSION: * No evidence of an acute intracranial process or intracranial mass. * Mild central predominant volume loss. * Hippocampal volumes at the 58th percentile when compared to age matched normal controls by quantitative analysis. * Minimal white matter disease which is nonspecific but likely reflective of chronic microvascular ischemia. * No evidence of parenchymal microhemorrhages by MRI. REFERENCES: White Matter Lesions: 0 = No lesions, including symmetrical, well-defined caps or bands 1 = Focal Lesions 2 = Beginning of [place] 3 = Diffuse Involvement of Entire Region Basal Ganglia Lesions: 0 = No Lesions 1 = 1 Focal Lesion (>5mm) 2 = >1 Focal Lesion (>5mm) 3 = Confluent Lesions Jw Morales, et al. The clinical use of structural MRI in Alzheimer disease. Nature Reviews Neurology 6;67 (2010). Joshua et al. Validation of a fully automated 3D hippocampal segmentation method using subjects with Alzheimer's disease mild cognitive impairment, and elderly controls. Neuroimage 43;59 (2008). Wahlund et al. A New Rating Scale for Age-Related White Matter Changes Applicable to MRI and CT. Stroke. 32:1318 (2001). * Asymmetry index defined as difference between left and right volumes divided by mean or [(L-R/Mean) x 100] (%). Age-matched reference charts measure total hippocampal volume (% of intracranial volume). See results from the analysis charts for details. Critical Care Paramedic: RAMONITA Transcribe Date/Time: Aug 01 2023 6:07P Dictated by : SHWETHA STEINER MD This examination was interpreted and the report reviewed and electronically signed by: SHWETHA STEINER MD on Aug 01 2023 6:12PM EST [id number] Normal [facility] Absolute lymphocyte countOrd ered By: Vannesa Velasquez on 05-19-2023 Lymphocytes Auto (Unsp spec) [#/Vol] 2.35 10*3/uL 0.83-4.51 [facility] Basophil percentageOrdered B y: Vannesa Velasquez on 05-19-2023 Basophils/100 WBC (Bld) 0.7 % 0-1 [facility] Bilirubin [Mass/Vol] 0.70 mg/dL 0.20-1.00 [facility] Comment on above: For patients on eltr ombopag therapy, use of Dimension [place] TBIL is not recommended. Chloride [Moles/Vol] 106 mmol/L 98-107 [facility] Cholesterol [Mass/Vol] 180 mg/dL <200 [facility] Comment on above: <200 mg/dL Desirable 200-240 mg/dL Borderline >240 mg/dL High Risk Eosinophils/100 WBC (Bld) 1.2 % 0-5 [facility] Glucose [Mass/Vol] 103 mg/dL 74-106 [facility] Comment on above: Fasting Glucose resu lt from 100 to 125 mg/dL suggests IMPAIRED HOMEOSTASIS per A.D.A. criteria. Neutrophils (Bld) [#/Vol] 4.5 10*3/uL 2.0-7.7 [facility] Neutrophils/100 WBC (Bld) 59.4 % 47-70 [facility] Potassium [Moles/Vol] 4.0 mmol/L 3.5-5.1 [facility] Protein [Mass/Vol] 7.5 g/dL 6.4-8.2 [facility] Sodium [Moles/Vol] 139 mmol/L 136-145 [facility] Triglyceride [Mass/Vol] 126 mg/dL <199 [facility] Comment on above: The drugs N-Acetylcy steine and Metamizole may falsely depress this assay.Serum Triglycerides Reference Interval Normal <150 mg/dL Borderline high 150 - 199 mg/dL High 200 - 499 mg/dL Very High > or = 500 mg/dL WBC (Bld) [#/Vol] 7.6 10*3/uL 4.4-11.0 [facility] Blood erythrocytes count (nu mber/volume)Ordered By: Vannesa Velasquez on 05-19-2023 RBC (Bld) [#/Vol] 5.06 10*6/uL 4.6-6.2 [facility] Blood hemoglobin measurement (mass/volume)Ordered By: Vannesa Velasquez on 05-19-2023 Hemoglobin (Bld) [Mass/Vol] 15.7 g/dL 13.0-16.5 [facility] Blood lymphocytes/100 leukoc ytesOrdered By: Vannesa Velasquez on 05-19-2023 Lymphocytes/100 WBC (Bld) 31.0 % 19-41 [facility] Blood monocytes/100 leukocyt esOrdered By: Vannesa Velasquez on 05-19-2023 Monocytes/100 WBC (Bld) 7.4 % 0-10 [facility] Blood platelet mean volumeOr dered By: Vannesa Velasquez on 05-19-2023 Platelet mean volume (Bld) [Entitic vol] 9.2 fL 6.2-12.0 [facility] Determination of erythrocyte mean corpuscular volume (MCV)Ordered By: Vannesa Velasquez on 05-19-2023 MCV (RBC) [Entitic vol] 90.5 fL 80-94 [facility] Hematocrit Auto (Bld) [Volum e fraction]Ordered By: Vannesa Velasquez on 05-19-2023 Hematocrit (Bld) [Volume fraction] 45.8 % 40-54 [facility] - Chemistry and C hemistry - challengeOrdered By: Vannesa Velasquez on 05-19-2023 ALP [Catalytic activity/Vol] 63 U/L 45-117 [facility] ALT [Catalytic activity/Vol] 29 U/L 16-61 [facility] CO2 [Moles/Vol] 27.0 mmol/L 21.0-32.0 [facility] Cobalamin (Vitamin B12) [Mass/Vol] 659 pg/mL 211-911 [facility] Globulin (S) [Mass/Vol] 3.5 g/dL 2.2-4.2 [facility] Urea nitrogen/Creatinine [Mass ratio] 16.4 mg/mg 10-20 [facility] - Hematology and Cell countsOrdered By: Vannesa Velasquez on 05-19-2023 Erythrocyte distribution width (RBC) [Entitic vol] 40.0 fL 35.1-43.9 [facility] Erythrocyte distribution width (RBC) [Ratio] 12.1 % 11.6-14.6 [facility] Immature granulocytes/100 WBC (Bld) 0.300 % 0.0-0.9 [facility] Comment on above: IG% - Immature Granu locytes (promyelocytes, myelocytes and metamyelocytes) > 1% indicates that a LEFT SHIFT is Present. MCH (RBC) [Entitic mass] 31.0 pg 27.0-32.0 [facility] Nucleated RBC/100 WBC (Bld) [Ratio] 0 % 0-5 [facility] MCHC Auto (RBC) [Mass/Vol]Or dered By: Vannesa Velasquez on 05-19-2023 MCHC (RBC) [Mass/Vol] 34.3 g/dL 32-36 [facility] No Panel InformationOrdered By: Vannesa Velasquez on 05-19-2023 Estimated GFR (MDRD) Amer 72 mL/min >60 [facility] Comment on above: GFR Calc Estimated GFR (MDRD) Non-Af Amer 60 mL/min >60 [facility] Comment on above: Non- GFR Calc Prostate Specific Antigen Screen 1.52 ng/mL 0.00-4.00 [facility] Comment on above: This test was perfor med using the TPSA assay method for the[facility]. Values obtained with differentassay methods cannot be used interchangably.When changing PSA assays in the course of monitoring apatient, additional sequential testing should be carriedout to confirm baseline values. Thyroid Stimulating Hormone (TSH) 1.42 uIU/mL 0.358-3.74 [facility] Vitamin D 25-Hydroxy 49.8 ng/mL [facility] Comment on above: Vitamin D 25(OH) Sta tus Range Deficiency <20 ng/mL (50nmol/L) Insufficiency 20 - 30 ng/mL (50 - 75 nmol/L) Sufficiency 30 - 100 ng/mL (75 - 250 nmol/L) Toxicity >100 ng/mL (>250 nmol/L) Platelets bldOrdered By: Lou Velasquez on 05-19-2023 Platelets (Bld) [#/Vol] 199 10*3/uL 150-450 [facility] Serum or plasma albumin adeline urement (mass/volume)Ordered By: Vannesa Velasquez on 05-19-2023 Albumin [Mass/Vol] 4.0 g/dL 3.2-5.0 [facility] Serum or plasma albumin/glob ulin mass ratioOrdered By: Vannesa Velasquez on 05-19-2023 Albumin/Globulin [Mass ratio] 1.1 {ratio} 0.9-2.4 [facility] Serum or plasma calcium adeline urement (mass/volume)Ordered By: Vannesa Velasquez on 05-19-2023 Calcium [Mass/Vol] 8.6 mg/dL 8.5-10.1 [facility] Serum or plasma cholesterol in HDL measurement (mass/volume)Ordered By: Vannesa Velasquez on 05-19-2023 Cholesterol in HDL [Mass/Vol] 49 mg/dL >40 [facility] Comment on above: The drugs N-Acetylcy steine and Metamizole may falsely depress this assay. Reference Range HDL <40 mg/dL Low HDL Cholesterol HDL >or= 60 mg/dL High HDL Cholesterol Serum or plasma cholesterol in VLDL measurement (mass/volume)Ordered By: Vannesa Velasquez on 05-19-2023 Cholesterol in VLDL [Mass/Vol] 25 mg/dL 5-40 [facility] Serum or plasma creatinine m easurement (mass/volume)Ordered By: Vannesa Velasquez on 05-19-2023 Creatinine [Mass/Vol] 1.28 mg/dL 0.70-1.30 [facility] Comment on above: The validity of the calculated GFR & GFRAA in patients over 70 years has not been determined. Clinical correlation is essential. Serum or plasma low density lipoprotein (LDL) cholesterol measurement (mass/volume)Ordered By: Vannesa Velasquez on 05-19-2023 Cholesterol in LDL [Mass/Vol] 106 mg/dL 0-130 [facility] Serum or plasma urea nitroge n measurement (mass/volume)Ordered By: Vannesa Velasquez on 05-19-2023 Urea nitrogen [Mass/Vol] 21 mg/dL 7-18 [facility] Thin prep Papanicolaou smear with manual screeningOrdered By: Vannesa Velasquez on 05-19-2023 Thin prep Papanicolaou smear with manual screening 14 U/L 15-37 [facility] Thin prep Papanicolaou smear with manual screening 6 5-15 [facility] Vital Signs Date Time Vital Sign Value Performing Clinician Harmony brasher 06-04-2024 12:36-0400 Body mass index (BMI) [Ratio] 27.54 kg/m2 Meir Ferrell MD Work Phone: [facility] 06-04-2024 12:36-0400 Body weight 92.1 kg Meir Ferrell MD Work Phone: [facility] 06-04-2024 12:36-0400 Diastolic blood pressure 77 mm[Hg] Meir Ferrell MD Work Phone: [facility] 06-04-2024 12:36-0400 Heart rate 65 /min Meir Ferrell MD Work Phone: [facility] 06-04-2024 12:36-0400 Systolic blood pressure 150 mm[Hg] Meir Ferrell MD Work Phone: [facility] 06-29-2023 08:23-0400 Body weight 99.84 kg Meir Ferrell MD Work Phone: [facility] 06-29-2023 08:23-0400 Diastolic blood pressure 78 mm[Hg] Meir Ferrell MD Work Phone: [facility] 06-29-2023 08:23-0400 Heart rate 69 /min Meir Ferrell MD Work Phone: [facility] 06-29-2023 08:23-0400 Systolic blood pressure 132 mm[Hg] Meir Ferrell MD Work Phone: [facility] 05-24-2023 07:45-0400 Diastolic blood pressure 75 mm[Hg] Deepika Caceres MD Work Phone: [facility] 05-24-2023 07:45-0400 Heart rate 75 /min Deepika Caceres MD Work Phone: [facility] 05-24-2023 07:45-0400 Systolic blood pressure 112 mm[Hg] Deepika Caceres MD Work Phone: [facility] 05-24-2023 07:44-0400 Body height 182.9 cm Deepika Caceres MD Work Phone: [facility] 05-24-2023 07:44-0400 Body weight 99.7 kg Deepika Caceres MD Work Phone: [facility] 05-24-2023 07:44-0400 SaO2% (BldA) [Mass fraction] 99 % Deepika Caceres MD Work Phone: [facility] Encounters Encounter Date Encounter Type Care Provider Facility Start: 02-20-2025 End: 02-21-2025 Refill Meir Ferrell MD Work Phone: Neurology Comment on above: Refill Request Start: 09-14-2024 End: 09-14-2024 Refill Meir Ferrell MD Work Phone: Neurology Comment on above: Refill Request Start: 08-27-2024 End: 08-27-2024 Telephone encounter Elissa Hudson Research Coordinator Work Phone: Neurology Comment on above: Research ([facility] [id number]) Start: 06-04-2024 End: 06-04-2024 ambulatory [facility] Facility:[facility] Start: 06-04-2024 End: 06-04-2024 Office outpatient visit 25 minutes Meir Ferrell MD Work Phone: Neurology Comment on above: SULLY (generalized anx iety disorder) (Primary Dx) Start: 05-21-2024 End: 05-21-2024 ambulatory [facility] Facility:[facility] Start: 04-04-2024 Refill Meir Ferrell MD Work Phone: Neurology Comment on above: Refill Request Start: 02-27-2024 Telephone encounter Meir Cee i, MD Work Phone: Neurology Comment on above: Patient Question Start: 02-26-2024 Refill Meir Ferrell MD Work Phone: Neurology Comment on above: Refill Request Start: 01-24-2024 Refill Meir Ferrell MD Work Phone: Neurology Comment on above: Refill Request Start: 08-01-2023 ambulatory [facility] Start: 06-29-2023 End: 06-29-2023 Patient encounter procedure Meir Ferrell MD Work Phone: Neurology Comment on above: Cognitive impairment , mild, so stated (Primary Dx); 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 Reminder Mailed.Pt may contact [facility] scheduling at opt #1 if further scheduling assistance is needed) Start: 05-24-2023 End: 05-24-2023 Patient encounter procedure Deepika Caceres MD Work Phone: Neurology Comment on above: Lewy body dementia w ith anxiety, unspecified dementia severity (HCC) (Primary Dx) Start: 05-19-2023 End: 05-19-2023 ambulatory [facility] Work Phone: Start: 05-19-2023 End: 05-19-2023 Patient encounter procedure [facility] Work Phone: Start: 09-13-2022 End: 09-13-2022 ambulatory [facility] Work Phone: Start: 09-13-2022 End: 09-13-2022 Patient encounter procedure [facility] Start: 08-08-2022 End: 08-08-2022 ambulatory [facility] Work Phone: Start: 08-08-2022 End: 08-08-2022 Patient encounter procedure [facility] Start: 08-03-2022 End: 08-03-2022 ambulatory [facility] Work Phone: Start: 08-03-2022 End: 08-03-2022 Patient encounter procedure [facility]Neurology Start: 07-07-2022 End: 07-07-2022 ambulatory [facility] Work Phone: Start: 07-07-2022 End: 07-07-2022 Patient encounter procedure [facility] Start: 07-26-2011 End: 07-26-2011 Telephone encounter Dario Pineda Neurology Comment on above: Sleep Study Report ( Titration [facility]) Procedures Date Procedure Procedure Detail Performing Clinician Start: 05-17-2022 Lipid 1996 panel - S ryley or Plasma Meir Ferrell MD Work Phone: Start: 06-25-2009 Colonoscopy Dario gill Plan of Treatment Date Care Activity Detail Author Start: 02-24-2032 RSV Vaccine (1 - 1-d ose 75+ series) RSV Vaccine (1 - 1-dose 75+ series) [facility] Start: 05-17-2027 Lipid 1996 panel - S ryley or Plasma Lipid Screening [facility] Start: 05-17-2027 Lipid panel [facility] Screening [facility] Start: 05-17-2027 LIPID SCREEN LIPID SCREEN [facility] Start: 05-17-2027 PROSTATE CANCER SCREENING DISCUSSION PROSTATE CANCER SCREENING DISCUSSION [facility] Start: 05-17-2027 Prostate specific antigen measurement Prostate Cancer Screening Discussion [facility] Start: 06-05-2025 End: 06-05-2025 Patient encounter procedure 06/05/2025 2:30 PM EDT Office Visit Neurology [address] [place] [address] Chrissy Lebron, DESTINY.BUSINESS OFFICE ASSISTANT [address] [place] [address] Lewy body dementia with anxiety, unspecified dementia severity (HCC) [G31.83, F02.84] Neurology Comment on above: Lewy body dementia w ith anxiety, unspecified dementia severity (HCC) [G31.83, F02.84] Start: 05-26-2025 Influenza vaccination Influenz a Vaccine (Season Ended) [facility] Start: 05-17-2025 DIABETES SCREEN DIABETES SCREEN [facility] Start: 05-17-2025 Diabetes Screening Diabetes Screenin g [facility] Start: 09-25-2024 Advance Directive Discussion Advance Directive Discussion [facility] Start: 06-04-2024 End: 06-04-2024 Patient encounter procedure 06/04/2024 1:00 PM EDT Office Visit Neurology [address] [place] [address] Meir Ferrell MD [address] [place] [address] Lewy body dementia with anxiety, unspecified dementia severity (HCC) [G31.83, F02.84] Neurology Comment on above: Lewy body dementia w ith anxiety, unspecified dementia severity (HCC) [G31.83, F02.84] Start: 05-26-2024 Covid-19 Vaccine ( season) Covid-19 Vaccine ( season) [facility] Start: 05-26-2024 Influenza vaccination Influenza Vacc ine (#1) [facility] Start: 12-04-2023 Covid-19 Vaccine ( season) Covid-19 Vaccine ( season) [facility] Start: 09-25-2023 Advance Directive Discussion Advance Directive Discussion [facility] Start: 05-26-2023 Covid-19 Vaccine ( season) Covid-19 Vaccine ( season) [facility] Start: 05-26-2023 Influenza vaccination C [facility] Start: 02-01-2023 COVID-19 VACCINE (6 - Pfizer series) COVID-19 VACCINE (6 - Pfizer series) [facility] Start: 09-25-2022 ADVANCE DIRECTIVE DISCUSSION ADVANCE DIRECTIVE DISCUSSION [facility] Start: 2022 Pneumococcal Vaccine : 65+ (1 - PCV) Pneumococcal Vaccine: 65+ (1 - PCV) [facility] Start: 2022 PNEUMOCOCCAL: 65+ (1 - PCV) PNEUMOCOCCAL: 65+ (1 - PCV) [facility] Start: 05-26-2021 Influenza vaccination INFLUENZ A (Season Ended) [facility] Start: 05-21-2021 LIPID SCREEN LIPID SCREEN [facility] Start: 05-18-2020 PROSTATE CANCER SCREENING DISCUSSION PROSTATE CANCER SCREENING DISCUSSION [facility] Start: 06-25-2019 Colonoscopy COLONOSCOPY [facility] Start: 06-25-2019 COLORECTAL CANCER SCREENING COLORECTAL CANCER SCREENING [facility] Start: 06-25-2019 Screening for malign ant neoplasm of colon [facility] Start: 05-21-2019 DIABETES SCREEN DIABETES SCREEN [facility] Start: 03-09-2019 Urine microalbumin profile [facility] Start: 2017 RSV Vaccine (1 - 1-d ose 60+ series) RSV Vaccine (1 - 1-dose 60+ series) [facility] Start: 04-09-2014 FECAL OCCULT BLOOD FECAL OCCULT BLOO D [facility] Start: 04-09-2014 Screening for malign ant neoplasm of colon FECAL OCCULT BLOOD [facility] Start: 2007 Screening for malign ant neoplasm of colon [facility] Start: 2007 SHINGRIX VACCINE (1 of 2) SHINGRIX VACCINE (1 of 2) [facility] Start: 2002 COLOGUARD (FIT-DNA) COLOGUARD (FIT-D NA) [facility] Start: [address] COLONOGRAPHY [facility] Start: 2002 Screening for malign ant neoplasm of colon [facility] Start: 2002 SIGMOIDOSCOPY SIGMOIDOSCOPY [facility] Start: 1975 Anxiety Screening Anxiety Screening [facility] Start: 1975 HEPATITIS C SCREENING HEPATITIS C [facility] Start: 1975 Hepatitis C screening Hepatitis C [facility] Start: 1975 HIV SCREENING HIV SCREENING [facility] Start: 1969 Adult depression screening assessment DEPRESSION SCREENING [facility] End: 07-28-2024 MRI 3D POST PROCESSING MRI 3D POST PROCESSING Radiology Routine Cognitive impairment, mild, so stated 1 Occurrences starting 06/29/2023 until 07/28/2024 [facility] Work Phone: Comment on above: 1 Occurrences starti ng 06/29/2023 until 07/28/2024 End: 07-28-2024 MRI BRAIN W QUANT WO IVCON MRI BRAIN W QUANT WO IVCON Radiology Routine Cognitive impairment, mild, so stated 1 Occurrences starting 06/29/2023 until 07/28/2024 [facility] Work Phone: Comment on above: 1 Occurrences starti ng 06/29/2023 until 07/28/2024 [facility] Immunization Date Immunization Notes Care Provider Rox curran 08-05-2023 COVID-19 vaccine, ag e 12+ yr, season (PFIZER-BIONTECH) Meir Ferrell MD Work Phone: [facility] 07-03-2023 influenza virus vaccine, unspecified formulation Meir Ferrell MD Work Phone: [facility] 07-18-2022 influenza, seasonal, injectable [facility] 07-18-2022 influenza virus vaccine, unspecified formulation Meir Ferrell MD Work Phone: [facility] 04-08-2022 Covid (Pfizer) [facility] 08-25-2021 Covid (Pfizer) [facility] 07-12-2021 influenza, seasonal, injectable [facility] 12-24-2020 Covid (Pfizer) [facility] 12-03-2020 Covid (Pfizer) [facility] 07-30-2020 influenza, seasonal, injectable [facility] 06-20-2019 influenza, seasonal, injectable [facility] 07-25-2018 influenza, seasonal, injectable [facility] 06-30-2017 influenza, seasonal, injectable [facility] 07-28-2016 influenza, seasonal, injectable Deepika Caceres MD Work Phone: [facility] 08-26-2015 influenza, seasonal, injectable Deepika Caceres MD Work Phone: [facility] 07-07-2013 influenza virus vaccine, unspecified formulation Depeika Caceres MD Work Phone: [facility] 03-09-2009 tetanus toxoid, redu michael diphtheria toxoid, and acellular pertussis vaccine, adsorbed Dario Moul [facility] Payers Date Payer Category Payer Self-pay [id number] 2022 Medicare [id number] 2022 Private Health Insurance MMO MED ICARE SUPPLEMENT [id number] 2022 Unknown MMO MMO MEDICARE SUPPLEMENT [id number] 2022-Present [phone] [address] [place] [address] Indemnity [id number] 2022 Medicare [id number] 2022 [id number] 2010 Unknown [employer] [id number] Unknown [id number] Social History Date Type Detail Facility Start: 03-17-2011 Tobacco smoking stat us ILIS Never smoker [facility] Start: 03-17-2011 End: 06-04-2024 Alcohol intake Current non-drinker of alcohol (finding) [facility] Start: 1955 Sex Assigned At Not on file C [facility] Start: 1955 Sex Assigned At Male [facility] Start: 05-24-2023 End: 06-29-2023 History of Social function [facility] Start: 05-24-2023 End: 06-29-2023 Tobacco use panel [facility] Adult Depression Screening Assessment 1 [facility] Functional Status Date Assessment Result Facility 04-11-2014 Are you deaf, or do you have serious difficulty hearing No 04/11/2014 8:15 AM Chey Valencia RN No [facility] 04-11-2014 Are you blind, or do you have serious difficulty seeing, even when wearing glasses No 04/11/2014 8:15 AM Chey Valencia RN No [facility] 04-11-2014 Do you have serious difficulty walking or climbing stairs No 04/11/2014 8:15 AM Chey Valencia RN No [facility] 04-11-2014 Do you have difficul ty dressing or bathing No 04/11/2014 8:15 AM Chey Valencia RN No [facility] 04-11-2014 Because of a physica l, mental, or emotional condition, do you have difficulty doing errands alone such as visiting a physician's office or shopping No 04/11/2014 8:15 AM Chey Valencia RN No [facility] Mental Status Date Assessment Result Facility 04-11-2014 Because of a physica l, mental, or emotional condition, do you have serious difficulty concentrating, remembering, or making decisions No 04/11/2014 8:15 AM Chey Valencia RN No [facility] Clinical Notes 03-06-2006 to 02-21-2025 Telephone Encounter - Chrissy Lebron APRN.CNP - 02/21/2025 12:31 PM EDTTelephone Encounter - Chrissy Lebron APRN.CNP - 02/21/2025 12:31 PM EDTPatient InstructionsPatient Instructions Note Date & Type Note Facility 02-21-2025 Telephone encounter Note The following approved medication requests have been transmitted electronically. Requested Prescriptions Signed Prescriptions Disp Refills donepezil (ARICEPT) 10 mg tablet 90 tablet 1 Sig: Take 1 tablet by mouth daily after breakfast. Authorizing Provider: CHRISSY LEBRON APRN.CNP en [facility] 02-21-2025 Miscellaneous Notes The following approved medication requests have been transmitted electronically. Requested Prescriptions Signed Prescriptions Disp Refills donepezil (ARICEPT) 10 mg tablet 90 tablet 1 Sig: Take 1 tablet by mouth daily after breakfast. Authorizing Provider: CHRISSY LEBRON APRN.BUSINESS OFFICE ASSISTANT Patient phones requesting refills as follows: Requested Prescriptions Pending Prescriptions Disp Refills donepezil (ARICEPT) 10 mg tablet 90 tablet 1 Sig: Take 1 tablet by mouth daily with food. Please review and advise. Valeria Paredes RN documented in this encounter [facility] 02-20-2025 Telephone encounter Note Patient phones requesting refills as follows: Requested Prescriptions Pending Prescriptions Disp Refills donepezil (ARICEPT) 10 mg tablet 90 tablet 1 Sig: Take 1 tablet by mouth daily with food. Please review and advise. Valeria Paredes RN [facility] 08-27-2024 Telephone encounter Note Called patient to discuss potential enrollment in DLBC. Left VM and callback number. [facility] 08-27-2024 Miscellaneous Notes Called patient to discuss potential enrollment in DLBC. Left VM and callback number. documented in this encounter [facility] 06-04-2024 Brian ToMeir gotti MD - 06/04/2024 1:31 PM EDT We advise you increase sertraline to 100 mg a day. 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 Runny nose has been reported with donepezil use. You performed much better today in our brief cognitive testing. documented in this encounter [facility] 06-04-2024 Note HNO ID: [id number] Author: MEIR FERRELL MD Service: ? 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 He is here today for follow up. Previous evaluation noted: This is a 68 y/o male with MCI (Prodromal Lewy Body disease). We are glad you tolerated donepezil well and saw positive results. We recommended an anti-depressant called Sertraline (Zoloft). I am prescribing Sertraline 25 mg (half tablet of 50 mg) daily after breakfast. After one week, please take one tablet of 50 mg daily. It may take 2-3 weeks to achieve desired results. Take in the morning to reduce the incidence of insomnia. Avoid alcohol. Maintain adequate hydration unless instructed to restrict fluid intake. You may experience drowsiness, dizziness, lightheadedness, nausea, vomiting, anorexia, dry mouth, postural hypotension, urinary pattern changes, or male sexual dysfunction (reversible). Report persistent insomnia or daytime sedation, agitation, nervousness, fatigue; muscle cramping, tremors, or weakness; chest pain, palpitations, or swelling of extremities; vision changes; ringing in ears;skin rash or irritation; suicide ideation; or worsening of condition. Since the last visit, they report improvement in symptoms: The spouse noted he is back to old habits, using computer, alert, and great improvement in cognition. Once or twice a month he may space out. Exercises regularly 30 minx 5 days. He takes melatonin 10 mg at bedtime. Still may act his dreams, may not as frequent as before. Wakes up at 9 which is different than his past. Dementia Severity Rating Scale (DSRS) 06/04/2024 DSRS Person completing Radha Live with participant? Yes Contact with participant 5 or more days per week Relationship to participant Spouse Memory 1 Speech and Language 0 Recognition of Family Members 0 Orientation to Time [address] 1 Ability to Make Decisions 0 Social and Community Activity 0 Home Activities and Responsibilities 1 Personal Care - Cleanliness 0 Eating 0 Urination and Bowels 0 Ability to Get From Place to Place 0 DSRS TOTAL SCORE 3 DSRS Interpretation Mild (0-18) Other interval history: Falls: negative Mood: normal Sleep: PIETRO and uses CPAP Hallucinations: None well formed, sometimes see dark flashes moving cross the room. No incontinence. 5-6: Activities of Daily Living, Driving PAST MEDICAL HISTORY No date: Depression No date: Dysfunction of eustachian tube No date: Enthesopathy of wrist and carpus No date: Insomnia, unspecified No date: Obstructive sleep apnea No date: Other dyspnea and respiratory abnormality No date: Stricture and stenosis of esophagus SOCIAL HISTORY Social History Tobacco Use Smoking status: Never Substance Use Topics Alcohol use: No Drug use: No Social History reviewed by Meir Ferrell MD Cognitive Exam: 06/29/2023 06/04/2024 [facility] MOCA TOTAL SCORE 22 26 out of 30 30 Vital Signs: BP 150/77 (BP Site: Left Arm, BP Position: Sitting, BP Cuff Size: Regular Adult) Pulse 65 Wt 92.1 kg (203 lb 0.7 oz) BMI 27.54 kg/m? Neurological Exam Cranial Nerves Hypomimia Motor Examination and Coordination MDS-UPDRS Medication off/on: Drug naiive DBS - Right: N/A DBS - Left: N/A Speech: Slight Facial expression: Slight Rigidity - neck: Normal Rigidity - right UE: Slight left UE: Slight Rigidity - right LE: Slight left LE: Normal Finger tapping - right: Slight left: Normal Hand movements - right: Normal left: Normal Pronation-supination movements of hands - right: Normal left: Normal Toe tapping - right: Normal left: Normal Leg agility - right: Normal left: Normal Arises from chair: Normal Gait: Normal Gait freeze: Normal Posture stability: Normal Posture: Normal Body bradykinesia: Normal Postural tremor of the hands - right: Normal left: Normal Kinetic tremor of the hands - right: Slight left: Slight Rest tremor amplitude - right UE: Normal left UE: Normal Rest tremor amplitude - right LE: Normal left LE: Normal Rest tremor amplitude - lip/jaw: Normal Constancy of rest tremor: Normal MDS-UPDRS Total Scores Right-sided total: 4 Left-sided total: 2 Midline total: 2 Tremor total / 40: 2 PIGD total / 12: 0 MDS-UPDRS Overall Total: 8 Gait Comes: independently ambulatory Arises: easily without arm use Posture: erect Gait initiation: normal Gait: occassional scuffing the right foot otherwise symetrical. Romberg: normal Rising on heels/toes: normal Hopping: ca stand on one foot > 5 sec. ASSESSMENT AND PLAN MCI (prodromal LBD) This is a 69 y/o male with non amnestic MCI, RBD ( prodromal Lewy body) with good response (more content not included)... [facility] 06-04-2024 History of Present illness Narrative Images from the original note were not included. 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 He is here today for follow up. Previous evaluation noted: This is a 68 y/o male with MCI (Prodromal Lewy Body disease). We are glad you tolerated donepezil well and saw positive results. We recommended an anti-depressant called Sertraline (Zoloft). I am prescribing Sertraline 25 mg (half tablet of 50 mg) daily after breakfast. After one week, please take one tablet of 50 mg daily. It may take 2-3 weeks to achieve desired results. Take in the morning to reduce the incidence of insomnia. Avoid alcohol. Maintain adequate hydration unless instructed to restrict fluid intake. You may experience drowsiness, dizziness, lightheadedness, nausea, vomiting, anorexia, dry mouth, postural hypotension, urinary pattern changes, or male sexual dysfunction (reversible). Report persistent insomnia or daytime sedation, agitation, nervousness, fatigue; muscle cramping, tremors, or weakness; chest pain, palpitations, or swelling of extremities; vision changes; ringing in ears; skin rash or irritation; suicide ideation; or worsening of condition. Since the last visit, they report improvement in symptoms: The spouse noted he is back to old habits, using computer, alert, and great improvement in cognition. Once or twice a month he may space out. Exercises regularly 30 minx 5 days. He takes melatonin 10 mg at bedtime. Still may act his dreams, may not as frequent as before. Wakes up at 9 which is different than his past. Dementia Severity Rating Scale (DSRS) 06/04/2024 DSRS Person kaylee Garcia Live with participant? Yes Contact with participant 5 or more days per week Relationship to participant Spouse Memory 1 Speech and Language 0 Recognition of Family Members 0 Orientation to Time [address] 1 Ability to Make Decisions 0 Social and Community Activity 0 Home Activities and Responsibilities 1 Personal Care - Cleanliness 0 Eating 0 Urination and Bowels 0 Ability to Get From Place to Place 0 DSRS TOTAL SCORE 3 DSRS Interpretation Mild (0-18) Other interval history: Falls: negative Mood: normal Sleep: PIETRO and uses CPAP Hallucinations: None well formed, sometimes see dark flashes moving cross the room. No incontinence. 5-6: Activities of Daily Living, Driving PAST MEDICAL HISTORY No date: Depression No date: Dysfunction of eustachian tube No date: Enthesopathy of wrist and carpus No date: Insomnia, unspecified No date: Obstructive sleep apnea No date: Other dyspnea and respiratory abnormality No date: Stricture and stenosis of esophagus SOCIAL HISTORY Social History Tobacco Use Smoking status: Never Substance Use Topics Alcohol use: No Drug use: No Social History reviewed by Meir Ferrell MD Cognitive Exam: 06/29/2023 06/04/2024 [facility] MOCA TOTAL SCORE 22 26 out of 30 30 Vital Signs: BP 150/77 (BP Site: Left Arm, BP Position: Sitting, BP Cuff Size: Regular Adult) Pulse 65 Wt 92.1 kg (203 lb 0.7 oz) BMI 27.54 kg/m Neurological Exam Cranial Nerves Hypomimia Motor Examination and Coordination MDS-UPDRS Medication off/on: Drug naiive DBS - Right: N/A DBS - Left: N/A Speech: Slight Facial expression: Slight Rigidity - neck: Normal Rigidity - right UE: Slight left UE: Slight Rigidity - right LE: Slight left LE: Normal Finger tapping - right: Slight left: Normal Hand movements - right: Normal left: Normal Pronation-supination movements of hands - right: Normal left: Normal Toe tapping - right: Normal left: Normal Leg agility - right: Normal left: Normal Arises from chair: Normal Gait: Normal Gait freeze: Normal Posture stability: Normal Posture: Normal Body bradykinesia: Normal Postural tremor of the hands - right: Normal left: Normal Kinetic tremor of the hands - right: Slight left: Slight Rest tremor amplitude - right UE: Normal left UE: Normal Rest tremor amplitude - right LE: Normal left LE: Normal Rest tremor amplitude - lip/jaw: Normal Constancy of rest tremor: Normal MDS-UPDRS Total Scores Right-sided total: 4 Left-sided total: 2 Midline total: 2 Tremor total / 40: 2 PIGD total / 12: 0 MDS-UPDRS Overall Total: 8 Gait Comes: independently ambulatory Arises: easily without arm use Posture: erect Gait initiation: normal Gait: occassional scuffing the right foot otherwise symetrical. Romberg: normal Rising on heels/toes: normal Hopping: ca stand on one foot > 5 sec. ASSESSMENT & PLAN MCI (prodromal LBD) This is a 69 y/o male with non amnestic MCI, RBD ( prodromal Lewy body) with good response to donepezil. He performed much better today in our brief cognitive testing. Runny nose has been reported with donepezil use. He is fine with this side effect as beenfit was noticeabel to them Anxiety disorder: We advise you increase sertraline to 100 mg a day. 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 I spent a total of 30 minutes on the date of service which included preparing to see the patient, [id number] patient care, performing a medically appropriate examination, completing clinical documentation, and on counseling/ eductaing the patient and the family. Meir Ferrlel MD CC: 1. Vannesa Velasquez DO, (fax) [phone] Patient-Reported 06/02/2024 06/26/2023 -- Where are you currently living? Home / Private residence Home / Private residence Are you using any community resources to help care for yourself? No No Has your caregiver accompanied you today? Yes Yes Did you receive help completing this questionnaire? No No If you received help, could you have completed this questionnaire on your own? N/A - I did not receive any help PROMIS-10 06/02/2024 05/24/2023 PROMIS 10 Health, in general Very good Very good Quality of life, in general Very good Very good Physical health, in general Very good Very good Mental health, in general Very good Good Social activities satisfaction Very good Good Performing ADL's Completely Completely Social role satisfaction Excellent Very good Pain, on average 2 0 - No Pain Fatigue, on average Mild Mild Emotional problems Sometimes Rarely PHYSICAL Score 54.1 (Very Good) 57.7 (Very Good) MENTAL Score 50.8 (Very Good) 48.3 (Very Good) PHQ-9 06/02/2024 06/26/2023 PHQ-9 All Questions Little interest or pleasure in doing things 1 1 Feeling down, depressed, or hopeless 1 0 Trouble falling or staying asleep, or sleeping too much 1 0 Feeling tired or having little energy 1 1 Poor appetite or overeating 0 0 Feeling bad about yourself - or that you are a failure or have let yourself or your family down 0 0 Trouble concentrating on things, such as reading the newspaper or watching television 1 1 Moving or speaking so slowly that other people could have noticed. Or the opposite - being so fidgety or restless that you have been moving around a lot more than usual 0 0 Thoughts that you would be better off , or of hurting yourself in some way 0 0 PHQ-9 Score 5 3 (0-4) minimal depression (5-9) mild depression (10-14) moderate depression (15-19) moderately severe depression (20-27) severe depression Full History of PHQ-9 Scores PHQ-9 Score 06/02/2024 5 06/26/2023 3 05/24/2023 3 05/18/2011 3 Sleep 06/02/2024 06/26/2023 -- What is your average total sleep time per night over the past 4 weeks? 8 Hours 7 Hours What is your average total sleep time during the day over the past 4 weeks? 1 Hours 1 Hours Have you been diagnosed with sleep apnea? Yes Yes Are you currently using positive airway pressure (PAP) therapy? Yes Yes How many hours per night on average do you use PAP therapy? 9-10 8 06/02/2024 06/26/2023 Insomnia Severity Index Difficulty falling asleep 1 0 Difficulty staying asleep 1 1 Problem waking up too early 0 2 Satisfied/dissatisfied with current sleep pattern 2 2 Sleep interferes with daily functions 1 0 Sleep problems noticeable to others 0 1 Worried/distressed about current sleep problems 1 0 Score 6 6 Caregiver-Reported 06/02/2024 06/26/2023 -- Are you the person who cares for the patient the majority of the time? (Primary Caregiver) Yes Yes How are you related to the patient? Spouse Spouse Do you currently reside with the patient? Yes Yes Are you currently employed outside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 everyone diagnosed with MCI goes on to develop dementia. There is currently no specific treatment for MCI. People leading sedentary lifestyles are at greater risk for developing dementia. Increased physical activity and brain exercise can help with maintaining brain function. Going forward, we discussed exercise and the importance of getting 150 minutes of cardiovascular exercise per week (30 min - 45 min x 3-5/week) to help with cognitive impairment. We recommended that you take Donepezil (Aricept) 5mg tab once a day for the first 2 weeks, then increase the dose to 10mg once per day. It is better to take Donepezil with breakfast or lunch. Aricept is well tolerated, although some people may experience nausea, diarrhea, not sleeping well, vomiting, muscle cramps, feeling tired, or not wanting to eat. For completion of our work up, we ordered an MRI of the brain to better understand the diagnosis and determine the treatment. - We believe that you may benefit from cognitive rehabilitation. -Provided reading materials on disease and the expected disease course -Provided patient education on interpersonal conflict management for the patient and family I spent a total of 60 minutes on the date of service which included preparing to see the patient, [id number] patient care, performing a medically appropriate examination, completing clinical documentation, and on counseling/ eductaing the patient and the family. Meir Ferrell MD documented in this encounter [facility] 05-24-2023 History of Present illness Narrative [facility] - NEW PATIENT EVALUATION Primary Care Provider: Vannesa Velasquez DO [address] [place] [address] Dear Vannesa Velasquez DO: I had the pleasure of evaluating Mr. Oneill in our clinic today. As you know he is a 68 year old right-handed male who presents for evaluation of memory and parkinsonism since . He is seen with his and daughter. Subjective HISTORY OF PRESENT ILLNESS: Initial HPI PCP concerned about parkinsonism. PCP noted gait issues. has noted shuffling when he walks. No falls. Memory issue is his biggest concern. Present for 1-2 years. Forgets why he got on the computer. Eventually he does remember. Progressive change. Has left car trunk open, leaves doors open. Frustrating but not limiting. Walks off without wallet and phone. Lost credit card. No memory testing has been done. Driving is ok per him. has noticed some depth perception issues- stopping too close or too far from another car. 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 Multiple people drive together in same car to [place] and then drive the cars back. He is usually the one driving everyone to [place] because he is the youngest. Never any incidents. Has to have GPS on for new places even if he has been there before. Hard to learn new technology. 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 No hallucinations or illusions except couple of times thought he saw something when driving when there was nothing there. Gets anxious/vigilant about the grandchildren more than before- what they are doing, are they ok. Stress when he has to go do something like an appointment and this is getting worse. Asks if depression ever goes away. On Zoloft briefly around the time his daughter was killed in 2005. Didn't like how it made him feel, too flat. Rare tremor. When using computer mouse. Little bit of slow dexterity. Overall moves slower. Acting out dreams about once per month. Gets out of bed, runs into the hallway. Has hurt himself. Not a sleepwalker as a child. On BiPAP for PIETRO. Recent sleep study and this was adjusted. PCP manages this. Saw Dr. Pineda many years ago. Slightly less RBD after recent PAP adjustment. Takes melatonin which seems to make it worse. Voice is softer and raspy. Golf game has gotten terrible. Golf swing feels different, stiffer. Maybe some visuospatial problems at play too. Gets exhausted quickly after few hours of activity. Used to be able to go all day. Movement Disorders Medications Schedule - as of the start of the visit: Medications none Questionnaires In addition, the following areas that may be affected by abnormal involuntary movements were evaluated: Daily activities Difficulties with eatin (none) Difficulties in dressin (none) Difficulties with hygiene activities: 0 (none) Difficulties with handwritin (none) always been terrible. worse. harder to read Difficulties with doing hobbies and other activities: 0 (none) Difficulties turning in bed: 0 (none) Difficulties getting out of bed, car or chair: 0 (none) Tremors/Gait/Balance Shaking or tremors: Yes (slight) Walking and balance problems: 0 (none) Number of falls in the Last Month: 0 Gait freezin (none) Autonomic/Pain Lightheadeness on standing: Yes (slight) if hasn't had enough water and up too fast. the past few years Urinary problems: 0 (none) Constipation problems: Yes (slight) Pain and other sensations: 0 (none) Speech/Swallowing Speech problems: Yes (slight) Droolin (none) Chewing and swallowing problems: 0 (none) Sleep/Fatigue Sleep problems: 0 (none) Daytime sleepiness: Yes (mild) Fatigue: 0 (none) Mood/Behavior Depression: PHQ-9 Score: 3 usually representing no significant (0-4) depression. Anxiety: SULLY-7 Total Score: 4 usually representing no significant (0-4) anxiety. Finally, the following table shows the patient's overall global physical and mental health using the PROMIS scale: PROMIS-10 Flowsheet Row Office Visit from 05/24/2023 in Neurology Global Physical Health T Score 57.7 Global Mental Health T Score 48.3 0-10 Standard Pain Scale 5 *PROMIS-10 scoring scale: mean = 50, over 50 is above average, under 50 is below average In addition, the following non-motor symptoms and palliative concerns were evaluated: Sleep/Fatigue: REM sleep behavior disorder: Yes Restless Legs Syndrome: Leg swelling: Impaired sense of smell: Yes Cognition: Cognitive impairment: yes MoCA Cognitive assessment: Hallucinations and delusions: no Apathy: Impulse control disorder: Palliative Concerns: Caregiver burden: Spiritual concerns: Advanced directives on file: Palliative services: Therapy and Exercise: Last PT Date: Last OT Date: Last ST Date: Exercises Regularly: Review of Systems Review of Systems Constitutional Negative for Fevers, Night Sweats, Weight Gain, Weight Loss and Fatigue Eyes Negative for Change in vison not corrected by glasses and Vision loss or change Hent Positive for Recent change in speech or voice Negative for Hearing Loss, Difficulty Swallowing and Tinnitus Cardiovascular Negative for Chest Pain, Lightheadedness and Leg pain with walking Respiratory Negative for SOB at rest, SOB with exertion, Cough, Wheezing and Snoring GI Positive for Constipation Negative for Blood in Stool, Abdominal Pain, Diarrhea, Nausea/Vomiting and Heartburn Negative for Urgency and Incontinence Endocrine Negative for Heat Intolerance and Excessive Thirst Musculoskeletal Negative for Back Pain, Joint Swelling, Stiff Joints and Muscle Pain Integumentary Negative for Rashes, Itching, Other Lesions and Hair Changes Heme/Lymph Negative for Prolonged Bleeding, Easy Bruising and Swelling of Arm or Leg Allergy/Immunologic Negative for Nasal Congestion and Swollen Nodes Neurologic Positive for Memory Problems Negative for Headache, Numbness/Tingling, Weakness, Double Vision, Trouble Swallowing and Slurred Speech Psychiatric Negative for Stress or Conflicts, Depression, Anxiety, Irritability, Hallucinations and Delusions Patient's Review of Systems has been reviewed with the patient and updated as appropriate. ALLERGIES No Known Allergies Current Outpatient Medications Medication Sig MULTIVITAMIN ORAL Take by mouth. cyanocobalamin (VITAMIN B-12) 1,000 mcg tab Take 1,000 mcg by mouth once daily. Garlic 1,000 mg cap Take by mouth. ascorbic acid, vitamin C, (VITAMIN C) 500 mg tablet Take 500 mg by mouth once daily. ZINC ORAL Take 10 mg by mouth. elderberry fruit (ELDERBERRY ORAL) Take by mouth. melatonin 10 mg tab Take by mouth. Cholecalciferol, Vitamin D3, 1,000 unit cap Take 1 capsule by mouth once daily. CPAP CPAP @ 9 cm of water with humidification. Mask (per patient preference) optional chin strap (if indicated) , filters, tubing, humidifier and lifetime supplies. Dx. PIETRO 327.23 No current facility-administered medications for this visit. Past Medical and Surgical History: has a past medical history of Depression, Dysfunction of eustachian tube, Enthesopathy of wrist and carpus, Insomnia, unspecified, Obstructive sleep apnea, Other dyspnea and respiratory abnormality, and Stricture and stenosis of esophagus. He has no past medical history of Atrial fibrillation (HCC), Cancer (HCC), Chronic obstructive pulmonary disease (COPD) ([facility]), Chronic renal insufficiency, Congestive heart failure (HCC), Coronary artery disease, Diabetes (HCC), Epilepsy (HCC), Hypertension, Hypothyroidism, Steroid long-term use, Stroke (HCC), or Substance abuse (HCC). has a past surgical history that includes past surgical history of; colonoscopy flx dx w/collj spec when pfrmd (06/25/2009); esophagogastroduodenoscopy transoral diagnostic (09/16/2010); past surgical history of (12/31/2015); repair of hydrocele; and open rx ankle dislocatn+fixatn. Social History Tobacco Use Smoking status: Never Substance Use Topics Alcohol use: No Drug use: No Family History: family history includes Cancer in his mother; Diabetes in his father; Heart in his father; Kidney failure in his father; No Known Problems in his brother, brother, and sister; Peripheral Artery Disease in his brother; testicular cancer in his brother. Objective Vital Signs: BP 112/75 (BP Site: Left Arm, BP Position: Standing, BP Cuff Size: Large Adult) Pulse 75 Ht 182.9 cm (6') Wt 99.7 kg (219 lb 12.8 oz) SpO2 99% BMI 29.81 kg/m Orthostatic Vitals: None for this encounter Weight: 99.7 kg (219 lb 12.8 oz) Height: 182.9 cm (6') No LMP for male patient. Body mass index is 29.81 kg/m . General Physical Examination: General: Awake, alert, interactive, no acute distress, good nutritional status, normal development, well-kept General Neurological Examination: Neurological Exam Mental Status Awake and alert. Language is fluent with no aphasia. Cranial Nerves CN III, IV, : Extraocular movements intact bilaterally. CN V: Facial sensation is normal. CN VII: Full and symmetric facial movement. CN VIII: Hearing is normal. CN XI: Shoulder shrug strength is normal. CN XII: Tongue midline without atrophy or fasciculations. Motor Strength is 5/5 throughout all four extremities. Sensory Light touch is normal in upper and lower extremities. Reflexes Right Left Brachioradialis 1+ 1+ Biceps 1+ 1+ Patellar 1+ 1+ Achilles Tr Tr Coordination Right: Lnfeva-rj-alxg normal. Rapid alternating movement normal.Left: Ckebvn-qi-vpco normal. Rapid alternating movement normal. Movement Disorders Scales Performed: MDS-UPDRS Motor subscale condition of exam Medication Off/On/Naiive Drug Naiive Time of UPDRS Time of Last Medication Last Medication Taken DBS Right DBS Left MDS-UPDRS Motor subscale scores Speech 1-Slight. Loss of modulation, diction or volume, but still all words easy to understand. Facial Expression 1-Slight. Minimal masked facies manifested only by decreased frequency of blinking. Rigidity Neck 1-Slight. Rigidity only detected with activation maneuver. Rigidity Right Upper Extremity 1-Slight. Rigidity only detected with activation maneuver. Rigidity Left Upper Extremity 1-Slight. Rigidity only detected with activation maneuver. Rigidity Right Lower Extremity 0-Normal. No rigidity. Rigidity Left Lower Extremity 0-Normal. No rigidity. Finger Taps Right 1-Slight. a) the regular rhythm is broken with one or two interruptions or hesitations of the tapping movement, b) slight slowing, c) the amplitude decrements near the end of the 10 taps. Finger Taps Left 0-Normal. No problems. Hand Movements Right 0-Normal. No problem. Hand Movements Left 0-Normal. No problem. Arm Movements Right 0-Normal. No problems. Arm Movements Left 0-Normal. No problems. Toe Taps Right 1-Slight. a) the regular rhythm is broken with one or two interruptions or hesitations of the tapping movement, b) slight slowing, c) the amplitude decrements near the end of the ten taps. Toe Taps Left 0-Normal. No problem. Leg Agility Right 0-Normal. No problems. Leg Agility Left 0-Normal. No problems. Arise From Chair 0-Normal. No problems. Able to arise quickly without hesitation. Gait 1-Slight. Independent walking with minor gait impairment. (reduced arm swing) Gait Freezing 0-Normal. No freezing. Posture Stability 0-Normal. No problems: recovers with one or two steps. (deferred) Posture 1-Slight. Not quite erect, but posture could be normal for older person. Body Bradykinesia 1-Slight. Slight global slowness and poverty of spontaneous movements. Postural Tremor Hand Right 0-Normal. No tremor. Postural Tremor Hand Left 0-Normal. No tremor. Kinetic Tremor Right 0-Normal. No tremor. Kinetic Tremor Left 1-Slight. Tremor is present but less than 1cm in amplitude. Rest Tremor Amplitude Right Upper Extremity 0-Normal. No tremor. Rest Tremor Amplitude Left Upper Extremity 0-Normal. No tremor. Rest Tremor Amplitude Right Lower Extremity 0-Normal. No tremor. Rest Tremor Amplitude Left Lower Extremity 0-Normal. No tremor. Rest Tremor Amplitude Lip/Jaw 0-Normal. No tremor. Rest Tremor Constancy 0-Normal. No tremor. MDS-UPDRS Motor subscale totals Left Total 2 Right Total 3 Midline Total 6 Tremor Total / 10 1 PIGD Total / 3 1 Overall Total 11 % Change Compared to Last Filed Total Assessment and Plan: Assessment Mr. Oneill is a right-handed 68 year old male with Cognitive impairment and parkinsonism. Also with RBD and hyposmia. Mild parkinsonism on exam which is manageable. Will refer to [facility] for memory work-up. Suspect DLB. Motor symptoms are not bothersome enough he would want to start levodopa at this time. There is significant anxiety which could be affecting him cognitively but he is not interested in antidepressant today. Discussed the importance of exercise. The following are the current problems noted and addressed during this visit: Lewy body dementia with anxiety, unspecified dementia severity (hcc) (primary encounter diagnosis) Plan 05/24/2023 Visit: Referral to [facility] - Updated Movement Disorders Medication Schedule: Medications Level of service : 23556 + 1 units 30635 ( > 75 min, [id number] for each 15 min > 60 min). Time spent 79 min on the day of service, which included preparing to see the patient, [id number]-[id number] patient care, completing clinical documentation, performing a medically appropriate examination, and counseling and educating the patient/family/caregiver. Thank you for allowing me to be part of the clinical care of this patient! I look forward to continued participation in the patient s care with you. Please do not hesitate to call with any questions. Sincerely, Deepika Caceres MD documented in this encounter [facility] 07-26-2011 Miscellaneous Notes Titration results received from [facility] Reviewed CPAP results with patient. Advised that Dr. Pineda will write orders for adjustment tomorrow while in office, I will fax order to Lucien and Lucien will then contact him to make appt to go to his home to adjust pressure on his machine. Patient advised that he should f/u in one month to see how he is doing on CPAP. He will call when home to arrange. Patient states that he is doing well with acclimation. Thank You, Alee Voss LPN documented in this encounter [facility] 03-06-2006 History of Past i llness Narrative Problem Noted Date Resolved Date Other tenosynovitis of hand and wrist 03/06/2006 05/27/2016 documented as of this encounter (statuses as of 01/12/2021) [facility] of Past illness Narrative* Problem Noted Date Diagnosed Date Resolved Date Other tenosynovitis of hand and wrist 03/06/2006 05/27/2016 documented as of this encounter (statuses as of 05/25/2023) [facility] Narrative* Problem Noted Date Diagnosed Date Resolved Date Other tenosynovitis of hand and wrist 03/06/2006 05/27/2016 documented as of this encounter (statuses as of 06/16/2023) [facility] illness Narrative* Problem Noted Date Diagnosed Date Resolved Date Other tenosynovitis of hand and wrist 03/06/2006 05/27/2016 documented as of this encounter (statuses as of 07/26/2023) [facility] PIETRO (obstructive sleep apnea) Obstructive sleep apnea (adult) (pediatric) [facility] noteNo assessment information availableWHolzer [facility] Work Phone: Evaluation note* Diagnosis Lewy body dementia with anxiety, unspecified dementia severity (HCC)- [facility] Cognitive impairment, mild, so stated- Primary Mild cognitive impairment, so stated Mild Lewy body dementia with mood disturbance (HCC) [facility] Diagnosis SULLY (generalized anxiety disorder) Generalized anxiety disorder documented in this [facility] SULLY (generalized anxiety disorder) Generalized anxiety disorder [facility] Diagnosis SULLY (generalized anxiety disorder)- Primary Generalized anxiety disorder documented in this encounter [facility] Advance Directives Documents on File Type Date Recorded 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 Advance Directive(s) 04/20/2016 7:50 AM Advance Directive(s) 04/11/2016 10:09 AM Chief Complaint and Reason for Visit Chief Complaint KNOWN PIETRO, HASN'T US ED MACHINE IN 6 YRS Chief Complaint KNOWN PIETRO, HASN'T US ED MACHINE IN 6 YRS POSS SHORT V-TACH ON MONITOR DURING SLEEP STUDY SEVERE PIETRO Chief Complaint KNOWN PIETRO, HASN'T US ED MACHINE IN 6 YRS POSS SHORT V-TACH ON MONITOR DURING SLEEP STUDY SEVERE PIETRO PIETRO & CSA Reason for Referral Specialty Diagnoses / Procedures Referred By Contac t Referred To Contact Neurology Diagnoses Lewy body dementia with anxiety, unspecified dementia severity (HCC) Procedures CONSULT TO NEUROLOGY OFFICE/OUTPATIENT [facility] 60-74 MINUTES Deepika Caceres MD [address] [place] [id number] [address] [place] [address] Referral ID Status Reason Start Date Expiration Date Visits Requested Visits Authorized [id number] Authorized PCP Requested Referral 05/24/2023 05/23/2024 1 1 Specialty Diagnoses / Procedures Referred By Betty t Referred To Contact MR IMAGING Diagnoses Cognitive impairment, mild, so stated Procedures MRI 3D POST PROCESSING 3D RENDERING W/INTERP&POSTPROC DIFF WORK STATION Meir Ferrell MD [address] [place] [address] Mr Imaging [id number] Referral ID Status Reason Start Date Expiration Date Visits Requested Visits Authorized [id number] Authorized Auto-Generat ed Referral 06/29/2023 07/28/2024 1 1 Specialty Diagnoses / Procedures Referred By Betty t Referred To Contact MR IMAGING Diagnoses Cognitive impairment, mild, so stated Procedures MRI BRAIN W QUANT WO IVCON MRI BRAIN BRAIN STEM W/O CONTRAST MATERIAL Meir Ferrell MD [address] [place] [address] Mr Imaging [id number] Referral ID Status Reason Start Date Expiration Date Visits Requested Visits Authorized [id number] Authorized Auto-Generat ed Referral 06/29/2023 07/28/2024 1 1 Summary Purpose Family History No Family History Records FoundNo Family History Records FoundNo Family History Records Found Additional Source Comments Source Comments (unrecognize d section and content) In the event this informatio n is protected by the Federal Confidentiality of Alcohol and Drug Abuse Patient Records regulations: The Federal rules restrict any use of the information to criminally investigate or prosecute any alcohol or drug abuse patient.[facility] the event this information is protected by the Federal Confidentiality of Alcohol and Drug Abuse Patient Records regulations: The Federal rules restrict any use of the information to criminally investigate or prosecute any alcohol or drug abuse patient.[facility] the event this information is protected by the Federal Confidentiality of Alcohol and Drug Abuse Patient Records regulations: The Federal rules restrict any use of the information to criminally investigate or prosecute any alcohol or drug abuse patient.[facility] the event this information is protected by the Federal Confidentiality of Alcohol and Drug Abuse Patient Records regulations: The Federal rules restrict any use of the information to criminally investigate or prosecute any alcohol or drug abuse patient.[facility] the event this information is protected by the Federal Confidentiality of Alcohol and Drug Abuse Patient Records regulations: The Federal rules restrict any use of the information to criminally investigate or prosecute any alcohol or drug abuse patient.[facility] the event this information is protected by the Federal Confidentiality of Alcohol and Drug Abuse Patient Records regulations: The Federal rules restrict any use of the information to criminally investigate or prosecute any alcohol or drug abuse patient.[facility] the event this information is protected by the Federal Confidentiality of Alcohol and Drug Abuse Patient Records regulations: The Federal rules restrict any use of the information to criminally investigate or prosecute any alcohol or drug abuse patient.[facility] the event this information is protected by the Federal Confidentiality of Alcohol and Drug Abuse Patient Records regulations: The Federal rules restrict any use of the information to criminally investigate or prosecute any alcohol or drug abuse patient.[facility] the event this information is protected by the Federal Confidentiality of Alcohol and Drug Abuse Patient Records regulations: The Federal rules restrict any use of the information to criminally investigate or prosecute any alcohol or drug abuse patient.[facility] the event this information is protected by the Federal Confidentiality of Alcohol and Drug Abuse Patient Records regulations: The Federal rules restrict any use of the information to criminally investigate or prosecute any alcohol or drug abuse patient.[facility] the event this information is protected by the Federal Confidentiality of Alcohol and Drug Abuse Patient Records regulations: The Federal rules restrict any use of the information to criminally investigate or prosecute any alcohol or drug abuse patient.[facility] the event this information is protected by the Federal Confidentiality of Alcohol and Drug Abuse Patient Records regulations: The Federal rules restrict any use of the information to criminally investigate or prosecute any alcohol or drug abuse patient.[facility] Reason for Visit (unrecogniz ed section and content) Reason Onset Date Comments Sleep Study Report 07/26/2011 Titration [facility] Reason Comments New Patient Evaluation Reason Comments Appointment LVM on both home/mob ile & spouse phone re: cancelation of appt time on 06/29 @1P & moved to 8:30A 9A due to provider schedule adjustment. Reminder Mailed.Pt may contact [facility] scheduling at opt #1 if further scheduling assistance is needed Reason Comments New Patient Evaluation Specialty Diagnoses / Procedures Referred By Contac t Referred To Contact Neurology Diagnoses Lewy body dementia with anxiety, unspecified dementia severity (HCC) Procedures CONSULT TO NEUROLOGY OFFICE/OUTPATIENT [facility] 60-74 MINUTES Deepika Caceres MD [address] [address] Referral ID Status Reason Start Date Expiration Date V isits Requested Visits Authorized [id number] Closed PCP Requested Referral 05/24/2023 05/23/2024 1 1 Reason Onset Date Comments Refill Request 01/24/2024 Reason Comments Refill Request Reason Comments Patient Question Reason Comments Follow Up Reason Comments Research [facility] [id number] Reason Onset Date Comments Refill Request 02/20/2025 Goals (unrecognized section and content) Goals may be documented in a n alternate sectionGoals may be documented in an alternate sectionGoals may be documented in an alternate sectionGoals may be documented in an alternate sectionGoals may be documented in an alternate section Care Teams (unrecognized sec tion and content) Team Status: Active Member Role Status Dates Dr. Vannesa Velasquez DO Family Provider Active Dr. Vannesa Velasquez DO Primary Care Provider Active Team Status: Inactive Member Role Status Dates Dr. Vannesa Velasquez DO Primary Care Prov ider, Attending Provider, Referring Provider Active Manager Military Relationship Specialty Start Date End Date Vannesa Velasquez DO [address] [place] [address] PCP - General Family Medicine 05/24/23 Manager Military Relationship Specialty Start Date End Date Vannesa Velasquez DO [address] [place] [address] PCP - General Family Medicine 05/24/23 Manager Military Relationship Specialty Start Date End Date Vannesa Velasquez DO [address] [place] [address] PCP - General Family Medicine 05/24/23 Manager Military Relationship Specialty Start Date End Date Vannesa Velasquez DO [address] [place] [address] PCP - General Family Medicine 05/24/23 Manager Military Relationship Specialty Start Date End Date Vannesa Velasquez DO [address] [place] [address] PCP - General Family Medicine 05/24/23 Manager Military Relationship Specialty Start Date End Date Vannesa Velasquez DO [address] [place] [address] PCP - General Family Medicine 05/24/23 Manager Military Relationship Specialty Start Date End Date Vannesa Velasquez DO [address] [place] [address] PCP - General Family Medicine 05/24/23 Manager Military Relationship Specialty Start Date End Date Vannesa Velasquez DO [address] [place] [address] PCP - General Family Medicine 05/24/23 (unrecognized sect ion and content) No Status Records FoundNo Status Records FoundNo Status Records Found INFORMATION SOURCE (unrecogn ized section and content) DATE CREATED AUTHOR 08/02/2023 [facility] DATE CREATED AUTHOR AUTHOR'S ORGANIZ ATION 05/26/2024 [facility] DATE CREATED AUTHOR AUTHOR'S ORGANIZ ATION 09/08/2024 [facility] FOR RECORDS PERTAINING TO PATIENTS WHO ARE OR HAVE BEEN ENROLLED IN A CHEMICAL DEPENDENCY/SUBSTANCEABUSE PROGRAM, SOME INFORMATION MAY BE OMITTED. This clinical summary was aggregated from multiple sources. Caution should be exercised in using it in the provision of clinical care. This summary normalizes information from multiple sources, and as a consequence, information in this document may materially change the coding, format and clinical context of patient data. In addition, data may be omitted in some cases. CLINICAL DECISIONS SHOULD BE BASED ON THE PRIMARY CLINICAL RECORDS. [facility] [employer] [facility]. provides no warranty or guarantee of the accuracy or completeness of information in this document.
[2025-05-22 12:53] LABS: Hematocrit 41.2 % (40-54); Hemoglobin 14.4 g/dL (13.0-16.5); Immature Granulocytes Count 0.010 X10^3/uL (0.0-0.0); Mean Corp Hgb Conc 35.0 g/dL (32-36); Mean Corpuscular Volume 90.5 fL (80-94); Mean Platelet Vol. 10.4 fl (6.2-12.0); NRBC Flagged by Analyzer 0 % (0-5); Platelet Count 182 K/mm3 (150-450); RBC Distribution Width CV 11.8 % (11.6-14.6); RBC Distribution Width SD 39.1 fl (35.1-43.9); Red Blood Count 4.55 M/mm3 (4.6-6.2); White Blood Count 6.2 K/mm3 (4.4-11.0)
[2025-05-22 13:05] LABS: PTHIN 35 pg/mL (11-61)
[2025-05-22 13:12] LABS: AST(SGOT) 17 U/L (<=37); Alanine Aminotransfer ALT/SGPT 14 U/L (<=46); Albumin, Serum 4.4 g/dL (3.4-4.8); Alkaline Phosphatase 59 U/L (40-129); Anion Gap 11 (5-15); BUN 28 mg/dL (4-19); BUN/Creat Ratio 23.1 RATIO (10-20); Calcium,Total 9.1 mg/dL (7.6-11.0); Carbon Dioxide 24.3 mmol/L (21.0-32.0); Chloride 105 mmol/L (98-108); Cholesterol 162 mg/dL (<=200); Globulin 2.7 g/dL (2.2-4.2); Glucose 100 mg/dL (70-99); Low Density Lipoprotein Calc. 98 mg/dL; PSA,Total - Annual Screen 1.40 ng/mL (0.02-4.00); Potassium 4.0 mmol/L (3.3-5.1); Triglycerides 72 mg/dL; Very Low Density Lipoprotein 14 mg/dL (5-40); cholesterol:hdl ratio screen 3.25
== END | disposition home or self-care (01) ==
LOC: LABSPEC 09:44 → BFHLAB 13:41
PROVIDERS: PCP Family Medicine; Visit Provider Family Medicine
DX: I12.9 Hypertensive chronic kidney disease with stage 1 through stage 4 chronic kidney disease, or unspecified chronic kidney disease (principal); N18.31 Chronic kidney disease, stage 3a; Z12.5 Encounter for screening for malignant neoplasm of prostate
CPT/HCPCS: 36415; 80053; 80061; 83970; 84153; 85025; G0103